=== PATIENT | male | born 1970 | race Caucasian/White ===

== ENCOUNTER 2022-09-19 04:04 | Inpatient (IN) | payer SELFPAY ==
[~2022-09-19] VITALS: Ht 175.3 cm; Wt 111.8 kg
[2022-09-19] MEDS ORDERED: KETOROLAC 30 MG/ML VIAL IVP STA (04:26)
[2022-09-19] MEDS ORDERED: LACTATED RINGERS 1,000 ML IV ONE ×2 (04:30)
[2022-09-19] MEDS ORDERED: PIPERACILLIN SODIUM/TAZOBACTAM 4.5 GM in NS (IVPB) 100 ML IV ONE (04:30)
[2022-09-19 04:41] LABS: BASOPHILS # (AUTO) 0.1 10^3/uL (0.0-0.1); BASOPHILS % (AUTO) 1 % (0-10); EOSINOPHILS # (AUTO) 0.2 10^3/uL (0.0-0.3); EOSINOPHILS % (AUTO) 2 % (0-10); HEMATOCRIT 47 % (40-54); LYMPHOCYTES # (AUTO) 1.4 10^3/uL (1.0-4.0); LYMPHOCYTES % (AUTO) 14 % (12-44); MEAN CORPUSCULAR HEMOGLOBIN 29 pg (25-34); MEAN CORPUSCULAR HGB CONC 34 g/dL (32-36); MEAN CORPUSCULAR VOLUME 85 fL (80-99); MEAN PLATELET VOLUME 9.8 fL (9.0-12.2); MONOCYTES # (AUTO) 0.6 10^3/uL (0.0-1.0); MONOCYTES % (AUTO) 6 % (0-12); NEUTROPHILS # (AUTO) 8.1 10^3/uL (1.8-7.8); NEUTROPHILS % (AUTO) 78 % (42-75); PLATELET COUNT 332 10^3/uL (130-400); WHITE BLOOD COUNT 10.4 10^3/uL (4.3-11.0)
[2022-09-19 04:53] LABS: ALBUMIN 4.3 GM/DL (3.2-4.5); CHLORIDE 106 MMOL/L (98-107); SODIUM 139 MMOL/L (135-145)
[2022-09-19 04:54] LABS: CALCIUM 9.4 MG/DL (8.5-10.1)
[2022-09-19 04:55] LABS: GLUCOSE 104 MG/DL (70-105); TOTAL PROTEIN 7.4 GM/DL (6.4-8.2)
[2022-09-19 04:56] LABS: CARBON DIOXIDE 21 MMOL/L (21-32)
[2022-09-19 04:57] LABS: BILIRUBIN,TOTAL 0.5 MG/DL (0.1-1.0)
[2022-09-19 04:59] LABS: ALKALINE PHOSPHATASE 68 U/L (40-136); CREATININE SERUM 0.95 MG/DL (0.60-1.30); GFR ESTIMATED 97
[2022-09-19 05:00] LABS: BUN/CREATININE RATIO 16
[2022-09-19 05:02] LABS: ALANINE AMINOTRANSFERASE 19 U/L (0-55)
[2022-09-19 05:03] LABS: ERYTHROCYTE SEDIMENTATION RATE 3 MM/HR (0-30)
[2022-09-19] MEDS ORDERED: NS 100 ML (IVPB) BAG IV ONE (06:15)
[2022-09-19] MEDS ORDERED: IOHEXOL 350 MG/ML 100 ML (OMNIPAQUE 350) VIAL IV ONE (06:15)
[2022-09-19] MEDS ORDERED: HOLD METFORMIN - RECEIVED CONTRAST 20 ML VIAL IV SCH (06:15)
[2022-09-19 06:33] LABS: AMPHETAMINE SCREEN, URINE NEGATIVE (NEGATIVE); BARBITURATE SCREEN URINE NEGATIVE (NEGATIVE); BENZODIAZEPINES SCREEN URINE NEGATIVE (NEGATIVE); CANNABINOID SCREEN, URINE NEGATIVE (NEGATIVE); COCAINE SCREEN URINE NEGATIVE (NEGATIVE); METHADONE STAT NEGATIVE (NEGATIVE); OPIATE SCREEN URINE NEGATIVE (NEGATIVE); OXYCODONE STAT NEGATIVE (NEGATIVE); PROPOXYPHENE STAT NEGATIVE (NEGATIVE); TRICYCLIC ANTIDEPRESSANTS SCRE NEGATIVE (NEGATIVE)
--- NOTE | 2022-09-19 06:33 | Diagnostic Imaging Report ---
PROCEDURE: CT maxillofacial with contrast. TECHNIQUE: After intravenous administration of contrast, axial images were obtained through the face and reformatted into coronal and sagittal planes. Auto Exposure Controls were utilized during the CT exam to meet ALARA standards for radiation dose reduction. INDICATION: Dental abscess COMPARISON: None FINDINGS: The pterygoid plates are intact. The zygomatic arches are intact. The mandible appears intact and normal in alignment. The maxilla appears intact and there is no fluid in the maxillary sinuses. The orbits are intact. The nasal bones are intact. Paranasal sinuses are otherwise clear. No acute abnormality is seen in the imaged portions of the intracranial structures. There are numerous erosions and dental caries present. There are periapical lucencies of the right maxillary canine and bicuspids. There are periapical lucencies of the left maxillary bicuspids. There are periapical lucencies of the right mandibular 1st molar as well as the left mandibular 1st and 2nd molars. There is a large lytic lesion in the left maxilla measuring about 2 x 1.6 cm in size which extends to the root of the left maxillary 1st molar and may be a periapical lucency or abscess. There is a similar finding on the contralateral side, but smaller. No drainable soft tissue fluid collection is seen. There is a soft tissue mass in the right pharynx measuring approximately 3.6 x 2.4 cm in size on axial imaging and nearly 4.9 cm craniocaudal, involving the right vallecula and the right epiglottis. This appears to narrow the airway by about 50%. No lymphadenopathy is appreciated. No acute osseous abnormality is seen. IMPRESSION: 1. Numerous dental caries with multiple periapical lucencies concerning for dental abscess. This includes at the maxillary molars bilaterally with erosive phlegmon. No rim-enhancing drainable fluid collection is appreciated. 2. Soft tissue mass in the right pharynx involving the vallecula and epiglottis, narrowing the airway and concerning for neoplasm. Recommend direct visualization. Dictated by: Dictated on workstation # [id number]
--- NOTE | 2022-09-19 06:49 | ED EENT ---
History of Present Illness General Chief Complaint: Dental Problems/Pain Stated Complaint: TOOTH ACHE Nursing Triage Note: Pt presents with c/o R sided dental pain. He reports that he's had dental pain for over a month. Tonight he was in pain, stated he took tylenol and went to bed. He then woke up "not feeling right" He states the entire R side of his face is swollen. Allergies and Home Medications Allergies Coded Allergies: No Known Drug Allergies (Unverified , 09/19/22) Past Tnufnkw-Ltgagl-Vqwkuw Hx Immunizations Up To Date Influenza Vaccine Up-to-Date: No; Not Current Physical Exam Vital Signs Vital Signs - First Documented 09/19/22 05:12 Temp 36.3 Pulse 85 Resp 18 B/P (MAP) 161/129 (140) Height, Weight, BMI Height: '" Weight: lbs. oz. kg; 35.00 BMI Method: Progress/Results/Core Measures Results/Orders Lab Results Laboratory Tests Test 09/19/22 04:25 09/19/22 06:02 Range/Units White Blood Count 10.4 4.3-11.0 10^3/uL Red Blood Count 5.58 H 4.30-5.52 10^6/uL Hemoglobin 16.0 13.3-17.7 g/dL Hematocrit 47 40-54 % Mean Corpuscular Volume 85 80-99 fL Mean Corpuscular Hemoglobin 29 25-34 pg Mean Corpuscular Hemoglobin Concent 34 32-36 g/dL Red Cell Distribution Width 13.0 10.0-14.5 % Platelet Count 332 130-400 10^3/uL Mean Platelet Volume 9.8 9.0-12.2 fL Immature Granulocyte % (Auto) 1 % Neutrophils (%) (Auto) 78 H 42-75 % Lymphocytes (%) (Auto) 14 12-44 % Monocytes (%) (Auto) 6 0-12 % Eosinophils (%) (Auto) 2 0-10 % Basophils (%) (Auto) 1 0-10 % Neutrophils # (Auto) 8.1 H 1.8-7.8 10^3/uL Lymphocytes # (Auto) 1.4 1.0-4.0 10^3/uL Monocytes # (Auto) 0.6 0.0-1.0 10^3/uL Eosinophils # (Auto) 0.2 0.0-0.3 10^3/uL Basophils # (Auto) 0.1 0.0-0.1 10^3/uL Immature Granulocyte # (Auto) 0.1 0.0-0.1 10^3/uL Erythrocyte Sedimentation Rate 3 0-30 MM/HR Sodium Level 139 135-145 MMOL/L Potassium Level 4.0 3.6-5.0 MMOL/L Chloride Level 106 98-107 MMOL/L Carbon Dioxide Level 21 21-32 MMOL/L Anion Gap 12 5-14 MMOL/L Blood Urea Nitrogen 15 7-18 MG/DL Creatinine 0.95 0.60-1.30 MG/DL Estimat Glomerular Filtration Rate 97 BUN/Creatinine Ratio 16 Glucose Level 104 70-105 MG/DL Lactic Acid Level 0.92 0.50-2.00 MMOL/L Calcium Level 9.4 8.5-10.1 MG/DL Corrected Calcium 9.2 8.5-10.1 MG/DL Total Bilirubin 0.5 0.1-1.0 MG/DL Aspartate Amino Transf (AST/SGOT) 16 5-34 U/L Alanine Aminotransferase (ALT/SGPT) 19 0-55 U/L Alkaline Phosphatase 68 40-136 U/L C-Reactive Protein High Sensitivity 0.34 0.00-0.50 MG/DL Total Protein 7.4 6.4-8.2 GM/DL Albumin 4.3 3.2-4.5 GM/DL Serum Alcohol < 10 <10 MG/DL Urine Opiates Screen NEGATIVE NEGATIVE Urine Oxycodone Screen NEGATIVE NEGATIVE Urine Methadone Screen NEGATIVE NEGATIVE Urine Propoxyphene Screen NEGATIVE NEGATIVE Urine Barbiturates Screen NEGATIVE NEGATIVE Ur Tricyclic Antidepressants Screen NEGATIVE NEGATIVE Urine Phencyclidine Screen NEGATIVE NEGATIVE Urine Amphetamines Screen NEGATIVE NEGATIVE Urine Methamphetamines Screen NEGATIVE NEGATIVE Urine Benzodiazepines Screen NEGATIVE NEGATIVE Urine Cocaine Screen NEGATIVE NEGATIVE Urine Cannabinoids Screen NEGATIVE NEGATIVE My Orders Orders - RAY LI DO Ed Iv/Invasive Line Start (09/19/22 04:20) Monitor-Rhythm Ecg Trace Only (09/19/22 04:20) Cbc With Automated Diff (09/19/22 04:20) Comprehensive Metabolic Panel (09/19/22 04:20) Hs C Reactive Protein (09/19/22 04:20) Lactic Acid Analyzer (09/19/22 04:20) Erythrocyte Sedimentation Rate (09/19/22 04:20) Ed Iv/Invasive Line Start (09/19/22 04:20) Lactated Ringers (Lr 1000 Ml Iv Solution (09/19/22 04:30) Alcohol (09/19/22 04:26) Drug Screen Stat (Urine) (09/19/22 04:26) Ed Iv/Invasive Line Start (09/19/22 04:26) Lactated Ringers (Lr 1000 Ml Iv Solution (09/19/22 04:30) Piperacillin Sodium/Tazobactam (Zosyn Vi (09/19/22 04:30) Ketorolac Injection (Toradol Injection) (09/19/22 04:26) Ct Maxillofacial W (09/19/22 05:02) Iohexol Injection (Omnipaque 350 Mg/Ml 1 (09/19/22 06:15) Received Contrast (Hold Metformin- Contr (09/19/22 06:15) Ns (Ivpb) (Sodium Chloride 0.9% Ivpb Bag (09/19/22 06:15) Medications Given in ED Current Medications Medications Dose Ordered Sig/Maynor Route Start Time Stop Time Status Last Admin Dose Admin Iohexol 100 ml ONCE ONCE IV 09/19/22 06:15 09/19/22 06:17 DC 09/19/22 06:03 75 ML Lactated Ringer's 1,000 ml @ 0 mls/hr Q0M ONCE IV 09/19/22 04:30 09/19/22 04:31 DC 09/19/22 04:37 0 MLS/HR Lactated Ringer's 1,000 ml @ 0 mls/hr Q0M ONCE IV 09/19/22 04:30 09/19/22 04:31 DC 09/19/22 04:38 0 MLS/HR Piperacillin Sod/ Tazobactam Sod 4.5 gm/Sodium Chloride 100 ml @ 200 mls/hr ONCE ONCE IV 09/19/22 04:30 09/19/22 04:59 DC 09/19/22 04:38 200 MLS/HR Sodium Chloride 100 ml ONCE ONCE IV 09/19/22 06:15 09/19/22 06:17 DC 09/19/22 06:03 80 ML Vital Signs/I&O 09/19/22 05:12 Temp 36.3 Pulse 85 Resp 18 B/P (MAP) 161/129 (140) Blood Pressure Mean: [address] MAXILLOFACIALS--PER RADIOLOGIST REPORT AT 1848 FINDINGS: The pterygoid plates are intact. The zygomatic arches are intact. The mandible appears intact and normal in alignment. The maxilla appears intact and there is no fluid in the maxillary sinuses. The orbits are intact. The nasal bones are intact. Paranasal sinuses are otherwise clear. No acute abnormality is seen in the imaged portions of the intracranial structures. There are numerous erosions and dental caries present. There are periapical lucencies of the right maxillary canine and bicuspids. There are periapical lucencies of the left maxillary bicuspids. There are periapical lucencies of the right mandibular 1st molar as well as the left mandibular 1st and 2nd molars. There is a large lytic lesion in the left maxilla measuring about 2 x 1.6 cm in size which extends to the root of the left maxillary 1st molar and may be a periapical lucency or abscess. There is a similar finding on the contralateral side, but smaller. No drainable soft tissue fluid collection is seen. There is a soft tissue mass in the right pharynx measuring approximately 3.6 x 2.4 cm in size on axial imaging and nearly 4.9 cm craniocaudal, involving the right vallecula and the right epiglottis. This appears to narrow the airway by about 50%. No lymphadenopathy is appreciated. No acute osseous abnormality is seen. IMPRESSION: 1. Numerous dental caries with multiple periapical lucencies concerning for dental abscess. This includes at the maxillary molars bilaterally with erosive phlegmon. No rim-enhancing drainable fluid collection is appreciated. 2. Soft tissue mass in the right pharynx involving the vallecula and epiglottis, narrowing the airway and concerning for neoplasm. Recommend direct visualization. Reviewed: Reviewed by [place] Departure Departure-Patient Inst. Referrals: NO,LOCAL PHYSICIAN (PCP/Family) Primary Care Physician RAY LI DO September 19, 2022 06:49
[2022-09-19 08:10] VITALS: BP 158/99
[2022-09-19] MEDS: fentaNYL INJ 100 MCG/2 ML AMP IVP PRN ×4 (08:45→17:17)
[2022-09-19] MEDS: PIPERACILLIN SODIUM/TAZOBACTAM 4.5 GM in NS (IVPB) 100 ML IV SCH ×2 (10:51→18:16)
[2022-09-19 11:16] VITALS: BP 143/98
[2022-09-19 11:17] VITALS: BP 143/98
[2022-09-19] MEDS: KETOROLAC 30 MG/ML VIAL IV PRN (14:11)
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
[2022-09-19 15:00] VITALS: BP 158/101
--- NOTE | 2022-09-19 16:14 | Progress Note ---
Standard Progress Note Progress Notes/Assess & Plan Date Seen by a Provider: September 19, 2022 Time Seen by a Provider: 16:00 Progress/Assessment & Plan ENTZach Reason for Consult: Throat Mass HPI: Patient admitted earlier today because of a dental abscess. On the ct of the neck it showed a large pharyngeal mass filling the valleculae and involving hte peiglottis on the right side. Patient reports problems swallowing for the last three weeks. It has not been treated in any fasion. He is having problems opening his mouth because of the right upper dental abscess. He has had dental problems for a long time. He is having no problems swallowing his saliva or breathing. He is on antibiotics for the dental abscess. wbc-10.4 X-ray review-shows large right sided pharyngeal mass which is exophytic and occludes the airway in the region of hte epiglottis. On the ct below the epiglottis looks clear. No marked adenopathy or abscss seen in the soft tissue of the neck. Teeth are in terible condition. Exam: General-no problems breathing voice sounds full but otherwise no stridor and no hoarseness Oral Cavity-mild to moderate trismus secondary to the dental abscess No mass seen at the posterior tongue. ON the right side the tonsil appears swollen in the mid tonsillar region. Tonsil on left is small Neck-tender in right jugulodigastric region and low in the neck in the midline but no marked swelling or absess felt Fiberoptic Lryngoscopy 4% xylocaine used to anesthetize the left side of the nose. ON exam, the nasopharynx was clear. Hypopharynx showed a large softitssue mass which occludes 80-90% of th airway above the level fo the cords. The cords themselves were clear. I was able to get around the mass with the fiberoptic laryngoscope and from the area of the petiole of hte epiglottis to the elvel fo hte cords it was clear. No pooling of secretions seen IMP: 1. 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 Dental Abscess Rec: 1. I reviewed the findings with the patient. He will need biopsy and removal of the cyst/mass for diagnosis and potential treatment. The mass does occlude most of the airway. Will speak with anesthesia regarding their comfort level with the above findings. If not comfortable will need to transfer to a higher level of care to do this. The ptient knows there is a possibility of needing transfer. Once I talk with anesthesia then will make a final decision. Dental abscess needs to get some better before surgery to decrease the amount of trismus present. His airway is stable at this time. Talked with anesthesia regardign the patietn and she will go past to assess the patient and we can make an informed decsioin on whether to proceed with surgery or transfer Final Diagnosis Large Right phayrngeal mass Dental Abscess Focused Exam Lactate Level 09/19/22 04:25: Lactic Acid Level 0.92 SARAH PETERSON MD September 19, 2022 16:14
[2022-09-19] MEDS: amLODIPine 10 MG (NORVASC) TAB PO ONE ×2 (17:03→17:08)
[2022-09-19] MEDS ORDERED: hydrALAZINE (APESOLINE) 20 MG/ML VIAL IV PRN (18:00)
[2022-09-19] MEDS: D5 1/2 NS W/KCL 20 MEQ/L 1,000 ML IV SCH (18:16)
[2022-09-19 19:14] VITALS: BP 144/95
[2022-09-20] VITALS (8 sets, daily range): BP systolic 127–148; BP diastolic 87–100
[2022-09-20] MEDS: KETOROLAC 30 MG/ML VIAL IV PRN
[2022-09-20] MEDS: PIPERACILLIN SODIUM/TAZOBACTAM 4.5 GM in NS (IVPB) 100 ML IV SCH ×3 (01:37→18:23)
[2022-09-20] MEDS: fentaNYL INJ 100 MCG/2 ML AMP IVP PRN ×3 (03:29→11:17)
[2022-09-20 05:55] LABS: BASOPHILS # (AUTO) 0.1 10^3/uL (0.0-0.1); BASOPHILS % (AUTO) 1 % (0-10); EOSINOPHILS # (AUTO) 0.1 10^3/uL (0.0-0.3); EOSINOPHILS % (AUTO) 1 % (0-10); HEMATOCRIT 45 % (40-54); LYMPHOCYTES # (AUTO) 0.9 10^3/uL (1.0-4.0); LYMPHOCYTES % (AUTO) 12 % (12-44); MEAN CORPUSCULAR HEMOGLOBIN 29 pg (25-34); MEAN CORPUSCULAR HGB CONC 34 g/dL (32-36); MEAN CORPUSCULAR VOLUME 85 fL (80-99); MEAN PLATELET VOLUME 10.1 fL (9.0-12.2); MONOCYTES # (AUTO) 0.5 10^3/uL (0.0-1.0); MONOCYTES % (AUTO) 6 % (0-12); NEUTROPHILS % (AUTO) 79 % (42-75); PLATELET COUNT 310 10^3/uL (130-400); WHITE BLOOD COUNT 7.6 10^3/uL (4.3-11.0)
[2022-09-20] MEDS: D5 1/2 NS W/KCL 20 MEQ/L 1,000 ML IV SCH ×2 (06:10→10:57)
[2022-09-20 06:14] LABS: CALCIUM 9.4 MG/DL (8.5-10.1); CREATININE SERUM 0.89 MG/DL (0.60-1.30); POTASSIUM 4.2 MMOL/L (3.6-5.0)
--- NOTE | 2022-09-20 06:36 | Progress Note ---
Standard Progress Note Progress Notes/Assess & Plan Date Seen by a Provider: September 20, 2022 Time Seen by a Provider: 06:00 Progress/Assessment & Plan ENTZach Reason for Consult: Throat Mass HPI: Patient admitted earlier today because of a dental abscess. On the ct of the neck it showed a large pharyngeal mass filling the valleculae and involving hte peiglottis on the right side. Patient reports problems swallowing for the last three weeks. It has not been treated in any fasion. He is having problems opening his mouth because of the right upper dental abscess. He has had dental problems for a long time. He is having no problems swallowing his saliva or breathing. He is on antibiotics for the dental abscess. wbc-10.4 X-ray review-shows large right sided pharyngeal mass which is exophytic and occludes the airway in the region of hte epiglottis. On the ct below the epiglottis looks clear. No marked adenopathy or abscss seen in the soft tissue of the neck. Teeth are in terible condition. Exam: General-no problems breathing voice sounds full but otherwise no stridor and no hoarseness Oral Cavity-mild to moderate trismus secondary to the dental abscess No mass seen at the posterior tongue. ON the right side the tonsil appears swollen in the mid tonsillar region. Tonsil on left is small Neck-tender in right jugulodigastric region and low in the neck in the midline but no marked swelling or absess felt Fiberoptic Lryngoscopy 4% xylocaine used to anesthetize the left side of the nose. ON exam, the nasopharynx was clear. Hypopharynx showed a large softitssue mass which occludes 80-90% of th airway above the level fo the cords. The cords themselves were clear. I was able to get around the mass with the fiberoptic laryngoscope and from the area of the petiole of hte epiglottis to the elvel fo hte cords it was clear. No pooling of secretions seen IMP: 1. 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 Dental Abscess Rec: 1. I reviewed the findings with the patient. He will need biopsy and removal of the cyst/mass for diagnosis and potential treatment. The mass does occlude most of the airway. Will speak with anesthesia regarding their comfort level with the above findings. If not comfortable will need to transfer to a higher level of care to do this. The ptient knows there is a possibility of needing transfer. Once I talk with anesthesia then will make a final decision. Dental abscess needs to get some better before surgery to decrease the amount of trismus present. His airway is stable at this time. Talked with anesthesia regardign the patietn and she will go past to assess the patient and we can make an informed decsioin on whether to proceed with surgery or transfer ENT-Annika 09/20-6am Patient seen. Has been evaluated by anesthesia. Symptoms no better no airway issue Exam-clinically hasnt changed dental abscess swellign some better no marked swelling seen in the neck good neck mobility voice is normal IMP: Large Pharyngeal mass Dental ABscess-better Rec: 1. Patient will need surgery for diagnosis and treatment. Risks benefits of the surgery including possilbe airwayu obstruction and were discussed. The possilbe need for a tracheostomy was discussed as well. The surger y is adriect laryngosocpy with biopsy/debridement and possible tracheostomy. He understands the tube will be put down with him awake. He has been NPO. Will proceed with surgery when crew and anesthesia are here. Focused Exam Lactate Level 09/19/22 04:25: Lactic Acid Level 0.92 SARAH PETERSON MD September 20, 2022 06:36
--- NOTE | 2022-09-20 06:37 | Progress Note-Pre Operative ---
Pre-Operative Progress Note Date of Available H&P: September 20, 2022 Date H&P Reviewed: September 20, 2022 Time H&P Reviewed: 06:00 History & Physical: H&P Reviewed, Patient Examed, No changes noted Changes from last HP none Pre-Operative Diagnosis: Large Right Pharyngeal Mass, Dysphagia SARAH PETERSON MD September 20, 2022 06:37
[2022-09-20] MEDS ORDERED: KETAMINE 50 MG/5 ML SYRINGE ONE ×2 (07:07→08:15)
[2022-09-20] MEDS ORDERED: MIDAZOLAM 2 MG/2 ML (VERSED) VIAL ONE ×3 (07:07→08:20)
[2022-09-20] MEDS ORDERED: LIDOCAINE/EPI 1%-1:100,000 (XYLOCAINE) 20ML ONE (07:12)
[2022-09-20] MEDS ORDERED: LIDOCAINE TOPICAL 4% 50 ML BTL ONE (07:19)
[2022-09-20] MEDS ORDERED: LIDOCAINE TOPICAL 4% 50 ML BTL MM ONE ×2 (07:30)
[2022-09-20] MEDS: LACTATED RINGERS 1,000 ML IV PRN ×2 (07:43→09:10)
[2022-09-20] MEDS ORDERED: HYDROmorphone 2 MG/ML VIAL (DILAUDID) ONE (07:59)
[2022-09-20] MEDS ORDERED: morphine INJ 10 MG/ML 1ML (SYR OR VIAL) ONE (07:59)
[2022-09-20] MEDS ORDERED: MEPERIDINE (DEMEROL) INJ 50 MG/ML ONE (07:59)
[2022-09-20] MEDS ORDERED: ONDANSETRON 4 MG/2 ML (SDV) Z0FRAN ONE (07:59)
[2022-09-20] MEDS ORDERED: fentaNYL INJ 100 MCG/2 ML AMP ONE ×2 (08:00→08:26)
[2022-09-20] MEDS ORDERED: ESMOLOL 100 MG/10 ML (BREVIBLOC) VIAL ONE (08:15)
[2022-09-20] MEDS ORDERED: SUGAMMADEX 500 MG/5 ML VIAL (BRIDION) IV ONE (08:50)
[2022-09-20] MEDS ORDERED: proPOfol 200 MG/20 ML (DIPRIVAN) VIAL IV ONE (08:55)
[2022-09-20] MEDS ORDERED: SEVOFLURANE (ULTANE) 15 ML INHAL SOLN ONE ×2 (08:57→11:18)
[2022-09-20] MEDS ORDERED: ROCURONIUM 50 MG/5 ML (ZEMURON) VIAL IV ONE (08:57)
--- NOTE | 2022-09-20 09:11 | Progress Note-Post Operative ---
Post-Operative Progess Note Surgeon (s)/Passport Application Examiner (s) Surgeon SARAH PETERSON MD Passport Application Examiner n/a Pre-Operative Diagnosis Large Right Pharyngeal Mass, Dysphagia Post-Operative Diagnosis same Post-Op Procedure Note Date of Procedure: September 20, 2022 Name of Procedure Performed: Emergent Awake Tracheostomy, Direct Laryngosopcy with Biopsy, EUA of ORpharynx with Biopsy of Large Right Tonsil Mass Description & Findings Description and Findings: n/a Anesthesia Type trach Estimated Blood Loss minimal Packing none. Specimen(s) collected/removed large right tonsil mass to pathology SARAH PETERSON MD September 20, 2022 09:11
--- NOTE | 2022-09-20 09:14 | Progress Note ---
Standard Progress Note Progress Notes/Assess & Plan Date Seen by a Provider: September 20, 2022 Time Seen by a Provider: 09:00 Progress/Assessment & Plan ENTZach Reason for Consult: Throat Mass HPI: Patient admitted earlier today because of a dental abscess. On the ct of the neck it showed a large pharyngeal mass filling the valleculae and involving hte peiglottis on the right side. Patient reports problems swallowing for the last three weeks. It has not been treated in any fasion. He is having problems opening his mouth because of the right upper dental abscess. He has had dental problems for a long time. He is having no problems swallowing his saliva or breathing. He is on antibiotics for the dental abscess. wbc-10.4 X-ray review-shows large right sided pharyngeal mass which is exophytic and occludes the airway in the region of hte epiglottis. On the ct below the epiglottis looks clear. No marked adenopathy or abscss seen in the soft tissue of the neck. Teeth are in terible condition. Exam: General-no problems breathing voice sounds full but otherwise no stridor and no hoarseness Oral Cavity-mild to moderate trismus secondary to the dental abscess No mass seen at the posterior tongue. ON the right side the tonsil appears swollen in the mid tonsillar region. Tonsil on left is small Neck-tender in right jugulodigastric region and low in the neck in the midline but no marked swelling or absess felt Fiberoptic Lryngoscopy 4% xylocaine used to anesthetize the left side of the nose. ON exam, the nasopharynx was clear. Hypopharynx showed a large softitssue mass which occludes 80-90% of th airway above the level fo the cords. The cords themselves were clear. I was able to get around the mass with the fiberoptic laryngoscope and from the area of the petiole of hte epiglottis to the elvel fo hte cords it was clear. No pooling of secretions seen IMP: 1. 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 Dental Abscess Rec: 1. I reviewed the findings with the patient. He will need biopsy and removal of the cyst/mass for diagnosis and potential treatment. The mass does occlude most of the airway. Will speak with anesthesia regarding their comfort level with the above findings. If not comfortable will need to transfer to a higher level of care to do this. The ptient knows there is a possibility of needing transfer. Once I talk with anesthesia then will make a final decision. Dental abscess needs to get some better before surgery to decrease the amount of trismus present. His airway is stable at this time. Talked with anesthesia regardign the patietn and she will go past to assess the patient and we can make an informed decsioin on whether to proceed with surgery or transfer [place] 09/20-6am Patient seen. Has been evaluated by anesthesia. Symptoms no better no airway issue Exam-clinically hasnt changed dental abscess swellign some better no marked swelling seen in the neck good neck mobility voice is normal IMP: Large Pharyngeal mass Dental ABscess-better Rec: 1. Patient will need surgery for diagnosis and treatment. Risks benefits of the surgery including possilbe airwayu obstruction and were discussed. The possilbe need for a tracheostomy was discussed as well. The surger y is adriect laryngosocpy with biopsy/debridement and possible tracheostomy. He understands the tube will be put down with him awake. He has been NPO. Will proceed with surgery when crew and anesthesia are here. [id number] Had to do an awake trach; unable to endotracheally intubate #[address]-tied and sewn in palce do not touch the trach ties will get chest x-ray in RR NPOas cuff is up on the trach if doing well will deflate the cuff this afternoon or tomrrow morning once cuff deflated then can take some po liquids 40% oxygen trach collar-cool mist other order per dR Tamez or CHASE-whichever is being done I will check in with him this afternoon to see how he is doing. the pathology will take a few days to get back he will have some oozing from the trach site and also where we did the biopsy in the right tonsil region and supraglottis Final Diagnosis obstructibe right tonsil mass upper airway obstruction requiring trach dental abscess Focused Exam Lactate Level 09/19/22 04:25: Lactic Acid Level 0.92 SARAH PETERSON MD September 20, 2022 09:14
[2022-09-20] MEDS ORDERED: LIDOCAINE/EPI 1%-1:100,000 (XYLOCAINE) 20ML INJ ONE (09:16)
[2022-09-20] MEDS ORDERED: LACTATED RINGERS 1,000 ML IV ONE (09:19)
--- NOTE | 2022-09-20 09:27 | Diagnostic Imaging Report ---
INDICATION: Tracheostomy, follow-up Frontal chest obtained at 0907 a.m. There is no prior study for comparison. There is cardiomegaly. There is a new tracheostomy tube in place with tip overlying mid trachea. There is no pneumothorax or pleural fluid or focal infiltrate. IMPRESSION: Cardiomegaly with new tracheostomy tube. No focal infiltrate or pneumothorax or pleural fluid. Dictated by: Dictated on workstation # [id number]
[2022-09-20] MEDS ORDERED: fentaNYL INJ 100 MCG/2 ML AMP IVP ONE (10:00)
[2022-09-20] MEDS ORDERED: morphine INJ 10 MG/ML 1ML (SYR OR VIAL) IVP ONE (10:00)
[2022-09-20] MEDS: ONDANSETRON 4 MG/2 ML (SDV) Z0FRAN IVP PRN ×2 (10:14→20:25)
[2022-09-20] MEDS: amLODIPine 10 MG (NORVASC) TAB PO SCH (10:34)
[2022-09-20] MEDS ORDERED: HYDROmorphone 2 MG/ML VIAL (DILAUDID) IV ONE (12:45)
--- NOTE | 2022-09-20 12:45 | Anesthesia-General Post-Op ---
General Patient Condition Mental Status/LOC: Same as Preop Cardiovascular: Satisfactory Nausea/Vomiting: Absent Respiratory: Satisfactory Pain: Controlled Complications: Absent Post Op Complications Complications None Follow Up Care/Instructions Patient Instructions None needed. Anesthesia/Patient Condition Patient Condition Patient is doing well, no complaints, stable vital signs, no apparent adverse anesthesia problems. No complications reported per nursing. MEHUL HAWKINS CRNA September 20, 2022 12:45
--- NOTE | 2022-09-20 13:57 | Progress Note - Hospitalist ---
NIKITAMABLE 09/20/22 1357: Subjective HPI/CC On Admission Date Seen by Provider: September 20, 2022 Time Seen by Provider: 12:40 Tramaine Berry is a 52y M who presented to the ED this morning with worsening right dental pain and swelling for the past few weeks. Subjective/Events-last exam present at bedside. Patient had tracheostomy and right tonsillar mass removal by Dr. Gonzalez today. He is having pain at time of examination, worse with swallowing and coughing. Review of Systems HEENT: Sore Throat Pulmonary: Cough Focused Exam Lactate Level 09/19/22 04:25: Lactic Acid Level 0.92 Objective Exam Vital Signs Vital Signs Date Time Temp Pulse Resp B/P (MAP) Pulse Ox O2 Delivery O2 Flow Rate FiO2 09/20/22 13:00 92 8 165/116 (132) 96 09/20/22 12:00 Trach Collar 10.00 09/20/22 09:45 36.8 Capillary Refill : Less Than 3 SecondsLess Than 3 Seconds General Appearance: WD/WN, Mild Distress (appears in pain with coughing ) HEENT: PERRL/EOMI, Other (tracheostomy site with small amount of bleeding) Respiratory: No Accessory Muscle Use, No Respiratory Distress, Other (frequent coughing) Cardiovascular: No Edema, No JVD Gastrointestinal: Non Tender, Soft Neurologic/Psychiatric: Alert, Normal Mood/Affect Skin: Normal Color, Warm/Dry Results/Procedures Lab Laboratory Tests 09/20/22 05:17 Patient resulted labs reviewed. Imaging: Reviewed Imaging Films, Reviewed Imaging Report Assessment/Plan Assessment and Plan Assess & Plan/Chief Complaint Dental Abscesses Poor dentition CT concerning for abscesses bilateral upper teeth and lytic maxillary lesion Control pain IV abx Abscess drainage- consider OMFS consult Pharyngeal mass on maxillofacial CT Dysphagia s/p tracheostomy CT noted a soft tissue mass in the right pharynx Dr Gonzalez performed tracheostomy and right tonsillar mass removal 09/20 Pending pathology Chest pain-resolved Troponins negative EKG normal Seems more MSK in nature given reproducibility with palpation ?Syncope Continue further investigation of pharyngeal mass ANEL HOPPER MD 09/20/22 1731: Subjective HPI/CC On Admission Time Seen by Provider: 12:30 Assessment/Plan Assessment and Plan Assess & Plan/Chief Complaint Tracheostomy performed, unable to intubate. Underwent right tonsillar mass excision/biopsy. Transferred to ICU. May need OMFS consult for dental abscesses. Continue Zosyn. Dilaudid added for acute pain. Critical Care: Critically Ill Patient Diagnosis/Problems Diagnosis/Problems (1) Tracheostomy in place Status: Acute (2) Tonsillar mass Status: Acute (3) Dental abscess Status: Acute (4) HTN (hypertension) Status: Acute (5) Obesity Status: Chronic Supervisory-Addendum Brief Verification & Attestation Participated in pt care: history, MDM, physical Personally performed: exam, history, MDM, supervision of care Care discussed with: Medical Student Procedures: n/a Results interpretation: Verified all documentation A medical student performed and documented this service in my presence. I reviewed and verified all information documented by the medical student and made modifications to such information, when appropriate. I personally performed the physical exam and medical decision making. MABLE SHELTON September 20, 2022 13:57 ANEL HOPPER MD September 20, 2022 17:31
[2022-09-20] MEDS: HYDROmorphone 2 MG/ML VIAL (DILAUDID) IV PRN ×3 (16:59→23:43)
--- NOTE | 2022-09-20 17:03 | Progress Note ---
Standard Progress Note Progress Notes/Assess & Plan Date Seen by a Provider: September 20, 2022 Time Seen by a Provider: 17:00 Progress/Assessment & Plan ENTZach Reason for Consult: Throat Mass HPI: Patient admitted earlier today because of a dental abscess. On the ct of the neck it showed a large pharyngeal mass filling the valleculae and involving hte peiglottis on the right side. Patient reports problems swallowing for the last three weeks. It has not been treated in any fasion. He is having problems opening his mouth because of the right upper dental abscess. He has had dental problems for a long time. He is having no problems swallowing his saliva or breathing. He is on antibiotics for the dental abscess. wbc-10.4 X-ray review-shows large right sided pharyngeal mass which is exophytic and occludes the airway in the region of hte epiglottis. On the ct below the epiglottis looks clear. No marked adenopathy or abscss seen in the soft tissue of the neck. Teeth are in terible condition. Exam: General-no problems breathing voice sounds full but otherwise no stridor and no hoarseness Oral Cavity-mild to moderate trismus secondary to the dental abscess No mass seen at the posterior tongue. ON the right side the tonsil appears swollen in the mid tonsillar region. Tonsil on left is small Neck-tender in right jugulodigastric region and low in the neck in the midline but no marked swelling or absess felt Fiberoptic Lryngoscopy 4% xylocaine used to anesthetize the left side of the nose. ON exam, the nasopharynx was clear. Hypopharynx showed a large softitssue mass which occludes 80-90% of th airway above the level fo the cords. The cords themselves were clear. I was able to get around the mass with the fiberoptic laryngoscope and from the area of the petiole of hte epiglottis to the elvel fo hte cords it was clear. No pooling of secretions seen IMP: 1. 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 Dental Abscess Rec: 1. I reviewed the findings with the patient. He will need biopsy and removal of the cyst/mass for diagnosis and potential treatment. The mass does occlude most of the airway. Will speak with anesthesia regarding their comfort level with the above findings. If not comfortable will need to transfer to a higher level of care to do this. The ptient knows there is a possibility of needing transfer. Once I talk with anesthesia then will make a final decision. Dental abscess needs to get some better before surgery to decrease the amount of trismus present. His airway is stable at this time. Talked with anesthesia regardign the patietn and she will go past to assess the patient and we can make an informed decsioin on whether to proceed with surgery or transfer [place] 09/20-6am Patient seen. Has been evaluated by anesthesia. Symptoms no better no airway issue Exam-clinically hasnt changed dental abscess swellign some better no marked swelling seen in the neck good neck mobility voice is normal IMP: Large Pharyngeal mass Dental ABscess-better Rec: 1. Patient will need surgery for diagnosis and treatment. Risks benefits of the surgery including possilbe airwayu obstruction and were discussed. The possilbe need for a tracheostomy was discussed as well. The surger y is adriect laryngosocpy with biopsy/debridement and possible tracheostomy. He understands the tube will be put down with him awake. He has been NPO. Will proceed with surgery when crew and anesthesia are here. [id number] Had to do an awake trach; unable to endotracheally intubate #[address]-tied and sewn in palce do not touch the trach ties will get chest x-ray in RR NPOas cuff is up on the trach if doing well will deflate the cuff this afternoon or tomrrow morning once cuff deflated then can take some po liquids 40% oxygen trach collar-cool mist other order per dR Tamez or [facility]ASE-whichever is being done I will check in with him this afternoon to see how he is doing. the pathology will take a few days to get back he will have some oozing from the trach site and also where we did the biopsy in the right tonsil region and supraglottis [place] 09/20-1700 ptient has done well post srugically-breathing easily-maintaining his sat urations small amount of drainage pain controlled with dilaudid exam-site with a mild amount of old blood-no active bleeding seen cuff taken down on trach was able to swallow a sip of wtaer-not able to talk yet as long as does ok tonight then back down to the floor tomorrow-waiting game on the pathology HOme needs: mist machine and suction machine will need a number 6 cuffless shiley to bedside for firsttrach change later this week will rrange for the next steps in eval and care once the pathology is known clear liquids is fine for khushi with sips of liquids as he can-if it causes too much coughing then would back off some Focused Exam Lactate Level 09/19/22 04:25: Lactic Acid Level 0.92 SARAH PETERSON MD September 20, 2022 17:03
[2022-09-21] MEDS: PIPERACILLIN SODIUM/TAZOBACTAM 4.5 GM in NS (IVPB) 100 ML IV SCH ×3 (02:11→18:06)
[2022-09-21] MEDS: HYDROmorphone 2 MG/ML VIAL (DILAUDID) IV PRN ×8 (02:16→21:15)
[2022-09-21] MEDS: D5 1/2 NS W/KCL 20 MEQ/L 1,000 ML IV SCH ×2 (03:48→16:12)
--- NOTE | 2022-09-21 06:05 | Progress Note ---
Standard Progress Note Progress Notes/Assess & Plan Date Seen by a Provider: September 21, 2022 Time Seen by a Provider: 06:00 Progress/Assessment & Plan ENTZach Reason for Consult: Throat Mass HPI: Patient admitted earlier today because of a dental abscess. On the ct of the neck it showed a large pharyngeal mass filling the valleculae and involving hte peiglottis on the right side. Patient reports problems swallowing for the last three weeks. It has not been treated in any fasion. He is having problems opening his mouth because of the right upper dental abscess. He has had dental problems for a long time. He is having no problems swallowing his saliva or breathing. He is on antibiotics for the dental abscess. wbc-10.4 X-ray review-shows large right sided pharyngeal mass which is exophytic and occludes the airway in the region of hte epiglottis. On the ct below the epiglottis looks clear. No marked adenopathy or abscss seen in the soft tissue of the neck. Teeth are in terible condition. Exam: General-no problems breathing voice sounds full but otherwise no stridor and no hoarseness Oral Cavity-mild to moderate trismus secondary to the dental abscess No mass seen at the posterior tongue. ON the right side the tonsil appears swollen in the mid tonsillar region. Tonsil on left is small Neck-tender in right jugulodigastric region and low in the neck in the midline but no marked swelling or absess felt Fiberoptic Lryngoscopy 4% xylocaine used to anesthetize the left side of the nose. ON exam, the nasopharynx was clear. Hypopharynx showed a large softitssue mass which occludes 80-90% of th airway above the level fo the cords. The cords themselves were clear. I was able to get around the mass with the fiberoptic laryngoscope and from the area of the petiole of hte epiglottis to the elvel fo hte cords it was clear. No pooling of secretions seen IMP: 1. 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 Dental Abscess Rec: 1. I reviewed the findings with the patient. He will need biopsy and removal of the cyst/mass for diagnosis and potential treatment. The mass does occlude most of the airway. Will speak with anesthesia regarding their comfort level with the above findings. If not comfortable will need to transfer to a higher level of care to do this. The ptient knows there is a possibility of needing transfer. Once I talk with anesthesia then will make a final decision. Dental abscess needs to get some better before surgery to decrease the amount of trismus present. His airway is stable at this time. Talked with anesthesia regardign the patietn and she will go past to assess the patient and we can make an informed decsioin on whether to proceed with surgery or transfer [place] 09/20-6am Patient seen. Has been evaluated by anesthesia. Symptoms no better no airway issue Exam-clinically hasnt changed dental abscess swellign some better no marked swelling seen in the neck good neck mobility voice is normal IMP: Large Pharyngeal mass Dental ABscess-better Rec: 1. Patient will need surgery for diagnosis and treatment. Risks benefits of the surgery including possilbe airwayu obstruction and were discussed. The possilbe need for a tracheostomy was discussed as well. The surger y is adriect laryngosocpy with biopsy/debridement and possible tracheostomy. He understands the tube will be put down with him awake. He has been NPO. Will proceed with surgery when crew and anesthesia are here. [id number] Had to do an awake trach; unable to endotracheally intubate #[address]-tied and sewn in palce do not touch the trach ties will get chest x-ray in RR NPOas cuff is up on the trach if doing well will deflate the cuff this afternoon or tomrrow morning once cuff deflated then can take some po liquids 40% oxygen trach collar-cool mist other order per dR Tamez or [facility]ASE-whichever is being done I will check in with him this afternoon to see how he is doing. the pathology will take a few days to get back he will have some oozing from the trach site and also where we did the biopsy in the right tonsil region and supraglottis [place] 09/20-1700 ptient has done well post srugically-breathing easily-maintaining his sat urations small amount of drainage pain controlled with dilaudid exam-site with a mild amount of old blood-no active bleeding seen cuff taken down on trach was able to swallow a sip of wtaer-not able to talk yet as long as does ok tonight then back down to the floor tomorrow-waiting game on the pathology HOme needs: mist machine and suction machine will need a number 6 cuffless shiley to bedside for firsttrach change later this week will rrange for the next steps in eval and care once the pathology is known clear liquids is fine for khushi with sips of liquids as he can-if it causes too much coughing then would back off some ENT-Annika-09/21-6am doing well taking sips of water without problem still not talking at all trach site looks good ok with me to transfer back to floor with current trach site orders will be out of town on so willsee the patient on wednesday waiting game for pathology needs to have all teeth removed at some point for his health and probaly in anticipation for treatment Focused Exam Lactate Level 09/19/22 04:25: Lactic Acid Level 0.92 SARAH PETERSON MD September 21, 2022 06:05
[2022-09-21] MEDS: amLODIPine 10 MG (NORVASC) TAB PO SCH (09:09)
[2022-09-21] MEDS: KETOROLAC 30 MG/ML VIAL IV PRN ×2 (09:48→18:07)
[2022-09-21] MEDS ORDERED: HYDROcodone/APAP 7.5MG-325 MG/15 ML (LORTAB) UDC PO PRN (11:30)
--- NOTE | 2022-09-21 14:08 | ST Dysphagia Evaluation ---
Speech Evaluation-General Medical Diagnosis Dental Abscess, Right Pharyngeal Mass Onset Date: September 19, 2022 Therapy Diagnosis Therapy Diagnosis: Suspected Pharyngeal Dysphagia Precautions Precautions: Aspiration Precautions/Isolations: Aspiration, Standard Precautions Referral Referring Physician: Dr. Smith Reason for Referral: Evaluation/Treatment Medical History Reviewed History: Yes Speech PLF/Current-Dysphagia Prior Level of Function Per patient (and patient's family), the patient has experienced swallowing difficulties for approximately two months. The patient stated he often coughed following thin liquids and food and frequently experienced a globus sensation which he localized to the laryngeal region. Subjective The patient was seated upright in his bed, awake and alert, upon entrance to his room by the clinician. The patient's has two family members present at bedside, both family members remain for the duration of the assessment. The patient reports discomfort and pain which he localizes to the pharyngeal and tracheostomy regions, however, is agreeable to participation in the clinical bedside swallowing evaluation. The patient's family members reported the patient recently experienced "a big choking" event on Jell-O. The patient's family provided inconsistent reports of the patient's tolerance of thin liquids, once stating the patient was not experiencing difficulties followed by a report the patient was intermittently coughing following the swallow. The patient reported he is experiencing difficulty swallowing his own secretions at this time. The patient has a Shiley, cuffed, tracheostomy tube #6 with the cuff deflated at this time. Cognitive Status Patient Orientation: Person, Place, Time, Situation The patient utilizes paper and a pen for communication at this time. Oral Motor Skills Dentition: Natural (Sparse, poor condition.) Current Food Consistancy: Clear Liquids Ability to Follow Directions: Excellent Oral Expression Ability: No Impairment (The patient does not display expressive difficulties (such as aphasia or anomia), however, is dependent on writing for communication at this time.) Tracheostomy Type: Cuffed (Cuff deflated.), Shiley Face Facial Symmetry: Symmetrical Oral-Facial Assessment Oral-Facial Dentition: Normal Labial Seal Description: Normal Smile: Normal Lingual Protrusion: Abnormal (Due to the patient's trismus, limited lingual range of motion could be observed or evaluated by the clinician.) Lingual ROM: Abnormal Lingual Strength: Abnormal Volitional Dry Swallow: Yes (Facial grimacing, odynophagia reported.) Voluntary Cough: Yes Can Clear Throat Volitionally: Yes Productive Cough: Yes Productive Throat Clear: Yes Dysphagia Evaluation Consistencies Presented: Thin Liquid (Ice chip, teaspoon, straw sip.) The patient was able to appropriately remove bolus material from a teaspoon and straw. Anterior bolus loss was not experienced. The patient appropriately man ipulated the ice chip and transferred the liquid posterior in the oral cavity. The patient consumed ice chips, teaspoons of water, and straw drinks of water. The patient displays an effortful swallow, grimacing due to odynophagia, and demonstrating three to four swallows per ice chip and teaspoon. Overt s/s of suspected aspiration were not displayed with ice chips and teaspoons. The patient attempted swallowing pain medication (thin liquid) via teaspoon. The patient displayed overt s/s of suspected aspiration characterized by delayed coughing, throat clearing, and reported elevated pain. The patient additionally displayed s/s of suspected aspiration with thin liquids via straw characterized by delayed, rigorous coughing and red face. Funct. Velo/Pharyngeal Symptom: Cough After Swallow Dietary Recommendations: NPO Liquid Recommendations: NPO Recommendations: - N.P.O. - Frequent and excellent oral care to reduce the transfer of oral bacteria to the lungs should aspiration of secretions occur. - Ice chips and sips of water, sparingly, to aid in comfort and initiate the rehabilitation process. - Speech pathology to evaluate the oropharyngeal swallowing function daily. - Consider completion of a modified barium swallow evaluation to assess for the presence of aspiration with P.O. consistencies and best guide the post-operative oropharyngeal swallowing rehabilitation plan (approved by Dr. Gonzalez). - Consider appropriateness of a tracheostomy speaking valve to restore intra- oral pressure throughout the oropharyngeal swallowing function (approved by Dr. Gonzalez). - If treatment plan includes radiation (pending on pathology report), consider prophylactic dysphagia therapy prior to and during treatment. The results and recommendations were discussed extensively with the patient, the patient's family, and the RN following completion of the clinical bedside swallowing evaluation. Dysphagia Evaluation Summary At this time, the patient displays suspected pharyngeal dysphagia characterized by multiple swallow attempts per teaspoon bolus, effortful swallowing, odyn ophagia, and poor airway protection in the presence of the swallow. Due to the patient's reported and visible discomfort, limited P.O. bolus trials could be attempted by the clinician. The clinician provided education regarding the oropharyngeal swallowing function, including the technique of digitally occluding the tracheostomy site throughout the swallow. At this time, the patient reports discomfort and pain at the tracheostomy site and stated he is not interested in attempting digital occlusion. The tracheostomy site is cuffed but the cuff is deflated. Once the patient's comfort with the tracheostomy site increases, the clinician does recommend attempts at digital occlusion to improve intra-oral pressure throughout the swallowing function. Speech Short Term Goals Short Term Goals Short Term Goals 1. The patient will display safe swallowing strategies with 80% accuracy, independently. Time Frame-STG: Five Days. Speech Assisted Goals Floor Space Allocator Goals 1. The patient will tolerate the least restrictive diet consistency without s/s of suspected aspiration. Time Frame: One Week. Speech-Plan Treatment Plan Speech Therapy Treatment Plan: Continue Plan of Care Treatment Duration: October 02, 2022 Frequency: 4 times per week Estimated Hrs Per Day: .25 hour per day Rehab Potential: Good Pt/Family Agrees to Plan: Yes Safety Risks/Education Teaching Recipient: Patient, Family, Significant Other Teaching Methods: Demonstration, Discussion Response to Teaching: Verbalize Understanding, Reinforcement Needed Education Topics Provided: Results, Recommendations, Oropharyngeal Swallow Anatomy and Physiology, Plan of Care Time Speech Therapy Time In: 12:00 Speech Therapy Time Out: 12:45 DATE: September 21, 2022 Total Billed Time: 76 Billed Treatment Time 1, SHAISTA DEL RIO [facility] September 21, 2022 14:08
--- NOTE | 2022-09-21 14:19 | ST Dysphonia Evaluation ---
LARRY CAZARES September 21, 2022 14:19
--- NOTE | 2022-09-21 14:26 | ST Cognitive Linguistic Eval ---
Speech Evaluation-General Medical Diagnosis Dental Abscess, Right Pharyngeal Mass Onset Date: September 19, 2022 Therapy Diagnosis Therapy Diagnosis: Aphonia (secondary tracheostomy) Precautions Precautions: Aspiration Precautions/Isolations: Aspiration, Standard Precautions Referral Referring Physician: Dr. Smith Reason for Referral: Evaluation/Treatment Medical History Reviewed History: Yes Speech PLF-Current Status Prior Level of Function Please see the patient's medical chart for detailed information regarding the patient prior medical history and recent care throughout his current acute hospitalization. Subjective The patient was seated upright in bed, awake and alert, upon entrance to the patient's room by the clinician. The patient has two family members present in the room, who remain for the evaluation and treatment. The patient makes eye contact and greets the clinician with a wave following the clinician's verbal greeting. The patient is agreeable to participation in the speech, language, and voice evaluation. The patient recently underwent tracheostomy placement due to the presence of a right pharyngeal mass. The patient has a Shiley, #6, cuffed (with the cuff deflated) tracheostomy in place (sutures present near faceplate). The patient has 10 L trach shield, blow by humidification/oxygen in place at this time. Language Eval: Auditory Comprehends Simple Yes/No Ques: Functional Follows 1-Step Commands: Functional Follows General Conversations: Functional Language Eval: Verbal Language Completes Spontaneous Greeting: Functional Requests Basic Needs: Functional Expresses Complex Ideas: Functional At this time, the patient is using paper and pen to communicate fluently to the clinician and others. Language Evaluation: Reading Comprehends Single Nouns: Functional Follows Simple Written Direct: Functional Comprehends Multiple Sentences: Functional Language Evaluation: Writing Writes Short Phrases: Functional Writes Detailed Sent/Paragraph: Functional Objective Cognitive Domain Attention: WNL Objective Oral Motor/Speech Production At this time, the patient wishes to defer attempts at speaking valve placement due to overall pain, including the tracheostomy site. The clinician introduced the [place] Speaking Valve (PMV) and provided diagrams on voice production, anatomy, and physiology. The RN contacted the physician and received appropriate orders for PMV trials. The clinician will continue to provide education to the patient, initiating PMV placement once the patient provides approval. Impression The patient displays aphonia at this time due to the placement of a tracheostomy. PMV orders have been received by the clinician from the patient's physician. The clinician has introduced the speaking valve and provided extensive education regarding vocal anatomy, physiology and PMV use. At this time, the patient is not comfortable initiating PMV trials due to pain. ST will initiate PMV trials once the patient provides permission to attempt and advance voicing techniques. Speech Short Term Goals Short Term Goals Short Term Goals 1. The patient will display appropriate and safe use and care of the [place] Valve. Time Frame-STG: Five Days. Speech Retirement Goals Combine Mechanic Goals 1. The patient will display improved and/or return to phonation with ability to communicate verbally to others through the use of a [place] Valve. Time Frame: One Week. Speech-Plan Treatment Plan Speech Therapy Treatment Plan: Continue Plan of Care Treatment Duration: October 02, 2022 Frequency: 4 times per week Estimated Hrs Per Day: .25 hour per day Rehab Potential: Good Pt/Family Agrees to Plan: Yes Safety Risks/Education Teaching Recipient: Patient, Family, Significant Other Teaching Methods: Demonstration, Discussion Response to Teaching: Verbalize Understanding, Reinforcement Needed Education Topics Provided: Results, Recommendations, [place] Valve Education, Tracheostomy Information, Voice Anatomy and Physiology Time Speech Therapy Time In: 12:45 Speech Therapy Time Out: 13:15 DATE: September 21, 2022 Total Billed Time: 30 Billed Treatment Time 1, OLY TELLEZ [facility] September 21, 2022 14:26
--- NOTE | 2022-09-21 14:58 | Progress Note - Hospitalist ---
Subjective HPI/CC On Admission Date Seen by Provider: September 21, 2022 Tramaine Berry is a 52y M who presented to the ED this morning with worsening right dental pain and swelling for the past few weeks. Subjective/Events-last exam Pt reports pain and cough still. Comunicates by writing. Asking if he can has hernia surgery while here as well but denying any pain with it. Focused Exam Lactate Level 09/19/22 04:25: Lactic Acid Level 0.92 Objective Exam Vital Signs Vital Signs Date Time Temp Pulse Resp B/P (MAP) Pulse Ox O2 Delivery O2 Flow Rate FiO2 09/21/22 09:00 68 13 126/89 (101) 99 Trach Collar 10.00 09/21/22 08:00 36.4 09/21/22 06:46 35 Capillary Refill : Less Than 3 SecondsLess Than 3 Seconds General Appearance: No Apparent Distress, Obese Neck: Other (trach) Respiratory: Lungs Clear, No Respiratory Distress Cardiovascular: Regular Rate, Rhythm Neurologic/Psychiatric: Alert, Oriented x3 Results/Procedures Lab Patient resulted labs reviewed. Imaging: Reviewed Imaging Films, Reviewed Imaging Report Assessment/Plan Assessment and Plan Assess & Plan/Chief Complaint Pharyngeal mass Dysphagia s/p tracheostomy Dental Abscesses Poor dentition s/p resection and trach by Dr Gonzalez on 09/20 Continue Zosyn Continue pain regimen Dr Gonzalez consulted, appreciate recs Path pending Umbilical hernia No pain and easily reduced Outpatient follow up HTN Continue amlodipine Critical Care Critically Ill Patient ELDA HUANG MD September 21, 2022 14:58
[2022-09-21 16:27] VITALS: BP 115/72
[2022-09-21 19:36] VITALS: BP 104/65
[2022-09-21] MEDS ORDERED: DOCUSATE SODIUM 100 MG (COLACE) CAP PO SCH (21:00)
[2022-09-22 00:03] VITALS: BP 110/64
[2022-09-22] MEDS: HYDROmorphone 2 MG/ML VIAL (DILAUDID) IV PRN ×6 (00:11→17:39)
[2022-09-22] MEDS: PIPERACILLIN SODIUM/TAZOBACTAM 4.5 GM in NS (IVPB) 100 ML IV SCH ×3 (02:20→17:33)
[2022-09-22 03:57] VITALS: BP 111/73
[2022-09-22] MEDS: KETOROLAC 30 MG/ML VIAL IV PRN ×2 (05:40→20:13)
[2022-09-22] MEDS: D5 1/2 NS W/KCL 20 MEQ/L 1,000 ML IV SCH ×2 (05:40→17:39)
[2022-09-22 06:16] LABS: HEMATOCRIT 43 % (40-54); HEMOGLOBIN 13.9 g/dL (13.3-17.7); MEAN CORPUSCULAR HEMOGLOBIN 29 pg (25-34); MEAN CORPUSCULAR HGB CONC 32 g/dL (32-36); MEAN CORPUSCULAR VOLUME 88 fL (80-99); MEAN PLATELET VOLUME 10.3 fL (9.0-12.2); PLATELET COUNT 281 10^3/uL (130-400); WHITE BLOOD COUNT 7.7 10^3/uL (4.3-11.0)
[2022-09-22 06:33] LABS: CALCIUM 8.8 MG/DL (8.5-10.1)
[2022-09-22 06:37] LABS: CREATININE SERUM 0.99 MG/DL (0.60-1.30)
[2022-09-22 07:27] VITALS: BP 112/71
[2022-09-22] MEDS: amLODIPine 10 MG (NORVASC) TAB PO SCH (09:18)
[2022-09-22 11:19] VITALS: BP 124/80
[2022-09-22] MEDS: fentaNYL PATCH 50 MCG (DURAGESIC) TD SCH (11:24)
--- NOTE | 2022-09-22 12:58 | Speech Therapy Daily Note ---
Speech Daily Progress Note Subjective Date Seen by Provider: September 22, 2022 Time Seen by Provider: 12:00 The patient was seated upright in his bed, awake and alert, upon entrance to his room by the clinician. The patient greeted the clinician appropriately and was agreeable to participation in the skilled treatment session. The patient reported his pain is a 7/10 which he stated was a reduction in pain from the prior date. The patient has a Shiley #6, cuffed (the cuff is deflated) in place with 8 liter trach collar in place. Objective The patient reports the tracheostomy is tender on this date and is nervous about attempting speaking valve placement. Due to this, the clinician discussed and provided education regarding the speaking valve, provided visualization of the speaking valve, and educational handouts on use and function. The clinician did not leave the speaking valve with the patient and has the patient's speaking valve in speech pathology's office. The patient was agreeable to finger occlusion with attempts at phonation. The patient followed instructions appropriately and attempted phonation upon exhalation. At this time, limited, muffled phonation was produced. The clinician suspects post-surgical edema may be present, in addition to trismus (secondary to dental abscess) which could be causing the muffled phonation at this time. The clinician experienced increased pressure when digital occlusion was lifted which is a sign the patient may not be appropriate for placement of the [place] Valve. [place] Valve attempts will be postponed pending improved patient comfort, decreased patient anxiety, and improved candidacy. The patient's SpO2% is 98% prior to P.O. trials and remained throughout the skilled treatment. The patient was provided ice chips and straw drinks of thin liquid. The patient reported odynophagia and facial grimacing remained present. Multiple swallows were attempted for each bolus, however, overt s/s of suspected aspiration were not present. The patient reports overall comfort with the swallowing mechanism on this date. Recommendations: - Clear liquid diet consistency, as tolerated (NO JELL-O). - Fully upright and alert upon P.O. intake. - Small, single sips only. - Monitor for s/s of suspected aspiration with P.O. intake. If demonstrated, please place the patient N.P.O. and contact speech pathology. - The patient is scheduled for a modified barium swallow on 5/17/23 at 1430 to assess for the presence of aspiration, as well as, provide the best prophylactic dysphagia treatment plan. - ST to continue daily follow ups and monitoring. The results and recommendations were provided to the patient and the patient's RN. The patient denied additional questions for ST at this time. Assessment Assessment Current Status: Good Progress Treatment Plan Continue Plan of Care Speech Short Term Goals Short Term Goals Short Term Goals 1. The patient will display appropriate and safe use and care of the [place] Valve. 2. The patient will display safe swallowing strategies with 80% accuracy, independently. Time Frame-STG: Five Days. Speech Red Leader Goals [facility] Goals 1. The patient will display improved and/or return to phonation with ability to communicate verbally to others through the use of a [place] Valve. 2. The patient will demonstrate tolerance of the least restrictive environment without s/s of suspected aspiration. Time Frame: One Week. Speech-Plan Treatment Plan Speech Therapy Treatment Plan: Continue Plan of Care Treatment Duration: October 02, 2022 Frequency: 4 times per week Estimated Hrs Per Day: .25 hour per day Rehab Potential: Good Pt/Family Agrees to Plan: Yes Safety Risks/Education Teaching Recipient: Patient Teaching Methods: Discussion Response to Teaching: Verbalize Understanding Education Topics Provided: Education re: PMV, Tracheostomy Information, Oropharyngeal Swallow Rehabilitation, Plan of Care, Education re: Modified Barium Swallow Time Speech Therapy Time In: 12:00 Speech Therapy Time Out: 12:50 DATE: September 22, 2022 Total Billed Time: 50 Billed Treatment Time 1OLY DYST LOY, [facility] ST September 22, 2022 12:58
--- NOTE | 2022-09-22 12:59 | Progress Note - Hospitalist ---
Subjective HPI/CC On Admission Date Seen by Provider: September 22, 2022 Tramaine Berry is a 52y M who presented to the ED this morning with worsening right dental pain and swelling for the past few weeks. Subjective/Events-last exam Pt reports severe pain still. Dilaudid is working but not lasting long enough. Still not able to take in oral meds. Objective Exam Vital Signs Vital Signs Date Time Temp Pulse Resp B/P (MAP) Pulse Ox O2 Delivery O2 Flow Rate FiO2 09/22/22 11:19 36.6 62 18 124/80 (95) 98 Trach Collar 30.00 8.00 09/22/22 09:44 30 Capillary Refill : Less Than 3 SecondsLess Than 3 Seconds General Appearance: No Apparent Distress Neck: Other (trach ) Respiratory: Lungs Clear Cardiovascular: Regular Rate, Rhythm, No Murmur Neurologic/Psychiatric: Alert, Oriented x3 Results/Procedures Lab Laboratory Tests 09/22/22 05:25 Patient resulted labs reviewed. Imaging: Reviewed Imaging Films, Reviewed Imaging Report Assessment/Plan Assessment and Plan Assess & Plan/Chief Complaint Pharyngeal mass Dysphagia s/p tracheostomy Dental Abscesses Poor dentition s/p resection and trach by Dr Gonzalez on 09/20 Continue Zosyn Continue pain regimen- add fentanyl patch to try to wean off IV and control pain in preparation for DC Dr Gonzalez consulted, appreciate recs Path pending still Umbilical hernia No pain and easily reduced Outpatient follow up HTN Continue amlodipine when able to take PO Critical Care Critically Ill Patient ELDA HUANG MD September 22, 2022 12:59
[2022-09-22 15:49] VITALS: BP 141/89
[2022-09-22 19:35] VITALS: BP 150/92
[2022-09-23] VITALS (7 sets, daily range): BP systolic 134–158; BP diastolic 86–99
[2022-09-23] MEDS: HYDROmorphone 2 MG/ML VIAL (DILAUDID) IV PRN ×3 (00:23→10:27)
[2022-09-23] MEDS: PIPERACILLIN SODIUM/TAZOBACTAM 4.5 GM in NS (IVPB) 100 ML IV SCH ×3 (03:07→17:42)
[2022-09-23] MEDS: KETOROLAC 30 MG/ML VIAL IV PRN ×3 (03:07→23:17)
[2022-09-23 05:49] LABS: CALCIUM 8.7 MG/DL (8.5-10.1)
[2022-09-23 05:53] LABS: CREATININE SERUM 0.81 MG/DL (0.60-1.30)
--- NOTE | 2022-09-23 06:17 | Progress Note ---
Standard Progress Note Progress Notes/Assess & Plan Date Seen by a Provider: September 23, 2022 Time Seen by a Provider: 06:00 Progress/Assessment & Plan ENTZach Reason for Consult: Throat Mass HPI: Patient admitted earlier today because of a dental abscess. On the ct of the neck it showed a large pharyngeal mass filling the valleculae and involving hte peiglottis on the right side. Patient reports problems swallowing for the last three weeks. It has not been treated in any fasion. He is having problems opening his mouth because of the right upper dental abscess. He has had dental problems for a long time. He is having no problems swallowing his saliva or breathing. He is on antibiotics for the dental abscess. wbc-10.4 X-ray review-shows large right sided pharyngeal mass which is exophytic and occludes the airway in the region of hte epiglottis. On the ct below the epiglottis looks clear. No marked adenopathy or abscss seen in the soft tissue of the neck. Teeth are in terible condition. Exam: General-no problems breathing voice sounds full but otherwise no stridor and no hoarseness Oral Cavity-mild to moderate trismus secondary to the dental abscess No mass seen at the posterior tongue. ON the right side the tonsil appears swollen in the mid tonsillar region. Tonsil on left is small Neck-tender in right jugulodigastric region and low in the neck in the midline but no marked swelling or absess felt Fiberoptic Lryngoscopy 4% xylocaine used to anesthetize the left side of the nose. ON exam, the nasopharynx was clear. Hypopharynx showed a large softitssue mass which occludes 80-90% of th airway above the level fo the cords. The cords themselves were clear. I was able to get around the mass with the fiberoptic laryngoscope and from the area of the petiole of hte epiglottis to the elvel fo hte cords it was clear. No pooling of secretions seen IMP: 1. 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 Dental Abscess Rec: 1. I reviewed the findings with the patient. He will need biopsy and removal of the cyst/mass for diagnosis and potential treatment. The mass does occlude most of the airway. Will speak with anesthesia regarding their comfort level with the above findings. If not comfortable will need to transfer to a higher level of care to do this. The ptient knows there is a possibility of needing transfer. Once I talk with anesthesia then will make a final decision. Dental abscess needs to get some better before surgery to decrease the amount of trismus present. His airway is stable at this time. Talked with anesthesia regardign the patietn and she will go past to assess the patient and we can make an informed decsioin on whether to proceed with surgery or transfer [place] 09/20-6am Patient seen. Has been evaluated by anesthesia. Symptoms no better no airway issue Exam-clinically hasnt changed dental abscess swellign some better no marked swelling seen in the neck good neck mobility voice is normal IMP: Large Pharyngeal mass Dental ABscess-better Rec: 1. Patient will need surgery for diagnosis and treatment. Risks benefits of the surgery including possilbe airwayu obstruction and were discussed. The possilbe need for a tracheostomy was discussed as well. The surger y is adriect laryngosocpy with biopsy/debridement and possible tracheostomy. He understands the tube will be put down with him awake. He has been NPO. Will proceed with surgery when crew and anesthesia are here. [id number] Had to do an awake trach; unable to endotracheally intubate #[address]-tied and sewn in palce do not touch the trach ties will get chest x-ray in RR NPOas cuff is up on the trach if doing well will deflate the cuff this afternoon or tomrrow morning once cuff deflated then can take some po liquids 40% oxygen trach collar-cool mist other order per dR Tamez or CHASE-whichever is being done I will check in with him this afternoon to see how he is doing. the pathology will take a few days to get back he will have some oozing from the trach site and also where we did the biopsy in the right tonsil region and supraglottis [place] 09/20-1700 ptient has done well post srugically-breathing easily-maintaining his sat urations small amount of drainage pain controlled with dilaudid exam-site with a mild amount of old blood-no active bleeding seen cuff taken down on trach was able to swallow a sip of wtaer-not able to talk yet as long as does ok tonight then back down to the floor tomorrow-waiting game on the pathology HOme needs: mist machine and suction machine will need a number 6 cuffless shiley to bedside for firsttrach change later this week will rrange for the next steps in eval and care once the pathology is known clear liquids is fine for khushi with sips of liquids as he can-if it causes too much coughing then would back off some ENT-Annika-09/21-6am doing well taking sips of water without problem still not talking at all trach site looks good ok with me to transfer back to floor with current trach site orders will be out of town on so willsee the patient on wednesday waiting game for pathology needs to have all teeth removed at some point for his health and probaly in anticipation for treatment [place] 09/23 6am overall doing well taking some liquids breathing easily still complains of pain-has a fentanyl patch now exam trach site looks good Rec: 1. will change trach before discharge-waiting on path r eport and then can decide what trach to put in 2. optimally plan on chanign trach on am if we get path bck and t hen justice 3. will have agame plan on treatment once we get path back 4. may be up and ambulate 5. needs for justice-at a minimum will need a suciton machine and mist machine 6. will follow up on thrus am or sooner if path gets back SARAH PETERSON MD September 23, 2022 06:17
[2022-09-23] MEDS: D5 1/2 NS W/KCL 20 MEQ/L 1,000 ML IV SCH (06:43)
[2022-09-23 06:46] LABS: HEMATOCRIT 41 % (40-54); HEMOGLOBIN 13.7 g/dL (13.3-17.7); MEAN CORPUSCULAR HEMOGLOBIN 29 pg (25-34); MEAN CORPUSCULAR HGB CONC 34 g/dL (32-36); MEAN CORPUSCULAR VOLUME 86 fL (80-99); MEAN PLATELET VOLUME 9.8 fL (9.0-12.2); PLATELET COUNT 296 10^3/uL (130-400); WHITE BLOOD COUNT 8.8 10^3/uL (4.3-11.0)
[2022-09-23] MEDS: amLODIPine 10 MG (NORVASC) TAB PO SCH (09:27)
--- NOTE | 2022-09-23 11:24 | Progress Note - Hospitalist ---
Subjective HPI/CC On Admission Date Seen by Provider: September 23, 2022 Tramaine Berry is a 52y M who presented to the ED this morning with worsening right dental pain and swelling for the past few weeks. Subjective/Events-last exam Pt doing betetr today. No complaints. Pain persists but a little better with patch. Objective Exam Vital Signs Vital Signs Date Time Temp Pulse Resp B/P (MAP) Pulse Ox O2 Delivery O2 Flow Rate FiO2 09/23/22 08:00 Trach Collar 8.00 09/23/22 07:47 97 30 09/23/22 07:34 36.9 77 20 134/88 (103) Capillary Refill : Less Than 3 SecondsLess Than 3 Seconds General Appearance: No Apparent Distress, Obese Neck: Other (trach) Respiratory: Lungs Clear, No Respiratory Distress Cardiovascular: Regular Rate, Rhythm, No Murmur Neurologic/Psychiatric: Alert, Oriented x3 Results/Procedures Lab Laboratory Tests 09/23/22 05:05 09/23/22 06:35 Patient resulted labs reviewed. Imaging: Reviewed Imaging Films, Reviewed Imaging Report Assessment/Plan Assessment and Plan Assess & Plan/Chief Complaint Pharyngeal mass Dysphagia s/p tracheostomy Dental Abscesses Poor dentition s/p resection and trach by Dr Gonzalez on 09/20 Continue Zosyn Continue pain regimen- encourage liquid hydrocodone as well to try and get off IV meds in preparation for discharge Dr Gonzalez consulted, appreciate recs Path pending still Umbilical hernia No pain and easily reduced Outpatient follow up HTN Continue amlodipine Critical Care Critically Ill Patient ELDA HUANG MD September 23, 2022 11:24
--- NOTE | 2022-09-23 11:42 | Occ Therapy Progress Note ---
Therapy Progress Note OT/PT order recieved, OT initiated evaluation and per patient request both OT/PT to retrun when present. OT left contact information w/patient and PT agrees to schedule w/ OT JAY WOODARD OT September 23, 2022 11:42
--- NOTE | 2022-09-23 11:56 | Speech Therapy Daily Note ---
Speech Daily Progress Note Subjective Date Seen by Provider: September 23, 2022 Time Seen by Provider: 11:35 The patient was seated upright in his bed, awake and alert, upon entrance to his room by the clinician. The patient greeted the clinician with eye contact and a wave, agreeing to participation in the skilled speech pathology treatment session. Objective The patient is scheduled for a modified barium swallow at 1430 on this date. The clinician discussed the process of the modified barium swallow with the patient and the information that can be gained from participation. The patient denied additional questions regarding the assessment at this time. The patient remains on a clear liquid diet consistency (no Jell-O). The patient denied choking episodes, coughing or throat clearing with the clear liquids throughout the prior evening. The clinician reviews s/s of suspected aspiration with the patient at the close of the swallowing discussion. The clinician remains concerned of the patient's oropharyngeal swallow function due to the location of the removed pharyngeal mass, the presence of the tracheostomy, and the patient's trismus (due to his dental abscess). A modified barium swallow remains the most appropriate plan of care to assess for aspiration of P.O. intake and provide the best dysphagia treatment post-operatively. The patient remains with the initial tracheostomy tube in place (Shwetha, #6 cuffed- with the cuff deflated). The clinician re-introduces the speaking valve on this date. At this time, the patient stated he remains anxious regarding attempts at placement. The clinician provided additional education regarding the speaking valve, as well as, possible benefits of placement. The patient agrees to digital occlusion of his tracheostomy site by the clinician to attempt ph onation. The patient is able to provide a sustained vowel with digital occlusion of the tracheostomy site upon exhalation by the clinician. The phonation remains muffled, however, improved in comparison to the prior session. Following the second attempt, the patient politely defers additional attempts by the clinician. Continue with current plan of care. Outpatient speech pathology intervention to implement prophylactic dysphagia therapy and speaking valve placement remains appropriate. Assessment Assessment Current Status: Fair Progress Treatment Plan Continue Plan of Care Speech Short Term Goals Short Term Goals Short Term Goals 1. The patient will display appropriate and safe use and care of the Passy [place] Valve. 2. The patient will display safe swallowing strategies with 80% accuracy, independently. Time Frame-STG: Five Days. Speech Academic Coach Goals Group Home Goals 1. The patient will display improved and/or return to phonation with ability to communicate verbally to others through the use of a Passy [place] Valve. 2. The patient will demonstrate tolerance of the least restrictive environment without s/s of suspected aspiration. Time Frame: One Week. Speech-Plan Treatment Plan Speech Therapy Treatment Plan: Continue Plan of Care Treatment Duration: October 02, 2022 Frequency: 4 times per week Estimated Hrs Per Day: .25 hour per day Rehab Potential: Good Safety Risks/Education Teaching Recipient: Patient Teaching Methods: Demonstration, Discussion Response to Teaching: Verbalize Understanding, Reinforcement Needed Education Topics Provided: Speaking Valve Education, Swallowing Education Time Speech Therapy Time In: 11:35 Speech Therapy Time Out: 11:45 DATE: September 23, 2022 Total Billed Time: 10 Billed Treatment Time SHAISTA Gustafson SLTS LO[facility], [facility] September 23, 2022 11:56
--- NOTE | 2022-09-23 14:33 | Physical Therapy Evaluation ---
PT Evaluation-General Medical Diagnosis Admission Date September 19, 2022 at 07:57 Medical Diagnosis: Dental Abscess, Right Pharyngeal Mass Onset Date: September 19, 2022 Therapy Diagnosis Therapy Diagnosis: gait deficit, strength deficit Precautions Precautions/Isolations: Fall Prevention, Standard Precautions Weight Bear Status Right Lower Extremity: Right Weight Bearing/Tolerated Left Lower Extremity: Left Weight Bearing/Tolerated Referral Physician: Dr. Marley Reason for Referral: Evaluation/Treatment Medical History Reviewed History: Yes Social History Home: Single Level Current Living Status: Spouse Entry Into Home: Stairs Without Railing PT Steps Into Home: 4 Prior Prior Level of Function SCALE: Activities may be completed with or without assistive devices. 9-Zazbmakceo-jjpmfea completes the activity by him/herself with no assistance from a helper. 5-Set-up or Clean-up Assistance-helper sets up or cleans up; patient completes activity. White assists only prior to or following the activity. 4-Supervision or Touching Assistance-helper provides verbal cues and/or touching/steadying and/or contact guard assistance as patient completes activity. Assistance may be provided throughout the activity or intermittently. 3-Partial/Moderate Assistance-helper does LESS THAN HALF the effort. White lifts, holds or supports trunk or limbs, but provides less than half the effort. 2-Substantial/Maximal Assistance-helper does MORE THAN HALF the effort. White lifts or holds trunk or limbs and provides more than half the effort. 8-Gjpozinyj-fjzkni does ALL the effort. Patient does none of the effort to complete the activity. Or, the assistance of 2 or more helpers is required for the patient to complete the activity. If activity was not attempted, code reason: 7-Patient Refused. 9-Not Applicable-not attempted and the patient did not perform the activity before the current illness, exacerbation or injury. 10-Not Attempted due to Environmental Limitations-(lack of equipment, weather restraints, etc.). 88-Not Attempted due to Medical Conditions or Safety Concerns. Bed Mobility: 6 Transfers (B,C,W/C): 6 Gait: 6 Stairs: 6 Indoor Mobility (Ambulation): Independent Stairs: Independent Prior Devices Use: None PT Evaluation-Current Subjective Patient sitting up in bed upon PT arrival, agreeable to treatment. Patient unable to speak at this moment, but is able to give non-verbals and writes information on a clipboard. Rates pain at 6/10 in jaw/mouth/throat. Patient on 6 L O2 via trach mask. Objective Patient Orientation: Person ROM/Strength ROM Lower Extremities WFLs all planes BLEs Strength Lower Extremities 4/5 BLEs all planes. Sensory Vision: Functional Hearing: Functional Sensation Right Lower Extremit: Intact Sensation Left Lower Extremity: Intact Transfers Roll Left to Right (QC): 6 Sit to Lying (QC): 6 Lying to Sitting/Side of Bed(Q: 6 Sit to Stand (QC): 4 Chair/Yug-ch-Trrur Xfer(QC): 4 Gait Does the Patient Walk?: Yes Mode of Locomotion: Walk Anticipated Mode of Locomotion: Walk Walk 10 feet (QC): 4 Walk 50 ft with 2 Turns(QC): 4 Walk 150 ft (QC): 4 Distance: 200 Gait Assistive Device: FWW Comments/Gait Description Patient requires assistance x 2 for IV and O2 Balance Sitting Static: Normal Sitting Dynamic: Normal Standing Static: Fair Standing Dynamic: Fair Assessment/Needs Patient demonstrates good potential to achieve established goals. Patient performs all observed bed mobility with independence. Patient performs all transfers with SBA. He is on 6 L O2 via trach mask. Patient ambulates 200 feet with FWW, with CGA and verbal cues for safety, progression and conservation of energy. Patient in transport w/c post treatment with staff taking him to swallow study. Rehab Potential: Good PT Towboat Captain Goals Towboat Captain Goals PT Group Home Goals Time Frame: October 07, 2022 Roll Left & Right (QC): 6 Sit to Lying (QC): 6 Lying-Sitting on Side/Bed(QC): 6 Sit to Stand (QC): 6 Chair/Asg-ii-Zedbq Xfer(QC): 6 Toilet Transfer (QC): 6 Car Transfer (QC): 6 Does the Patient Walk: Yes Walk 10 feet (QC): 6 Walk 50ft with 2 Turns (QC): 6 Walk 150 ft (QC): 6 1 Step (curb) (QC): 6 4 Steps (QC): 6 12 Steps (QC): 6 PT Plan Problem List Problem List: Activity Tolerance, Functional Strength, Safety, Balance, Gait, Transfer, Bed Mobility, ROM Treatment/Plan Treatment Plan: Continue Plan of Care Treatment Plan: Bed Mobility, Education, Functional Activity Kaity, Functional Strength, Group Therapy, Gait, Safety, Therapeutic Exercise, Transfers Treatment Duration: October 07, 2022 Frequency: 6 times per week Estimated Hrs Per Day: .25 hour per day Patient and/or Family Agrees t: Yes Safety Risks/Education Patient Education: Gait Training, Transfer Techniques Teaching Recipient: Patient Teaching Methods: Demonstration, Discussion Response to Teaching: Verbalize Understanding, Return Demonstration Time Time In: 1400 Time Out: 1415 DATE: September 23, 2022 Total Billed Treatment Time: 15 Total Billed Treatment Visit, DONNY FERNANDEZ PT September 23, 2022 14:33
--- NOTE | 2022-09-23 14:53 | Occupational Therapy Eval ---
OT Evaluation-General/PLF Medical Diagnosis Admission Date September 19, 2022 at 07:57 Medical Diagnosis: Dental Abscess, Right Pharyngeal Mass Onset Date: September 19, 2022 Therapy Diagnosis Therapy Diagnosis: weakness/dizziness Precautions Precautions/Isolations: Fall Prevention, Standard Precautions Weight Bear Status Weight Bearing Restriction: Full Weight Bearing Referral Physician: Dr. Marley Referral Reason: Self Care, Evaluation/Treatment Medical History Pertinent Medical History: HTN Additional Medical History hernia Current History 52y M who presented to the ED with worsening right dental pain and swelling for the past few weeks. Social History Home: Single Level Current Living Status: Spouse Entry Into Home: Stairs Without Railing Steps Into Home: 4 ADL-Prior Level of Function SCALE: Activities may be completed with or without assistive devices. 3-Tgpinxsvvw-wmaneyv completes the activity by him/herself with no assistance from a helper. 5-Set-up or Clean-up Assistance-helper sets up or cleans up; patient completes activity. [place] assists only prior to or following the activity. 4-Supervision or Touching Assistance-helper provides verbal cues and/or touching/steadying and/or contact guard assistance as patient completes activity. Assistance may be provided throughout the activity or intermittently. 3-Partial/Moderate Assistance-helper does LESS THAN HALF the effort. [place] lifts, holds or supports trunk or limbs, but provides less than half the effort. 2-Substantial/Maximal Assistance-helper does MORE THAN HALF the effort. [place] lifts or holds trunk or limbs and provides more than half the effort. 4-Djghqfwbj-pimoin does ALL the effort. Patient does none of the effort to complete the activity. Or, the assistance of 2 or more helpers is required for the patient to complete the activity. If activity was not attempted, code reason: 7-Patient Refused. 9-Not Applicable-not attempted and the patient did not perform the activity before the current illness, exacerbation or injury. 10-Not Attempted due to Environmental Limitations-(lack of equipment, weather restraints, etc.). 88-Not Attempted due to Medical Conditions or Safety Concerns. Self Care: Independent Functional Cognition: Independent Drive Self: Yes OT Current Status Subjective Patient is agreeable to therapy, uses write clipboard, patient demonstrates mild anxiety w/ the unknown, Therapy is informative to process and procedures to ease patient anxiety Pain Numeric Pain Scale: 6 Mental Status/Objective Patient Orientation: Person, Place, Time, Situation Attachments: IV, Oxygen Current Upper Extremity ROM BUE ROM WFLS Upper Extremity Coordination FMC/GMC intact Upper Extremity Strength WFLs +4/5 grossly Slow moving, slow protective response, reaches for obstacles for balance and security. Reports tender throat and fearful of people touching the trach area ADL-Treatment Eating (QC): 88 (Swallow video to be peformed) Oral Hygiene (QC): 2 Shower/Bathe Self (QC): 88 Upper Body Dressing (QC): 3 Lower Body Dressing (QC): 3 On/Off Footwear (QC): 5 Toileting Hygiene (QC): 3 Education OT Patient Education: Correct positioning, Energy conservation, Exercise program, Modified ADL techniques, Progress toward Goal/Update tx plan, Rehab process, Safety issues, Transfer techniques Teaching Recipient: Patient Teaching Methods: Demonstration, Discussion Response to Teaching: Reinforcement Needed OT Warehouse Manager Goals Shelter Goals Eating (QC): 5 Oral Hygiene (QC): 5 Toileting Hygiene (QC): 5 Shower/Bathe Self (QC): 5 Upper Body Dressing (QC): 5 Lower Body Dressing (QC): 5 On/Off Footwear (QC): 6 1=Demonstrate adherence to instructed precautions during ADL tasks. 2=Patient will verbalize/demonstrate understanding of assistive devices/modifications for ADL. 3=Patient will improve strength/tolerance for activity to enable patient to perform ADL's. OT Education/Plan Problem List/Assessment Assessment: Decreased Activ Tolerance, Impaired Self-Care Skills Discharge Recommendations Plan/Recommendations: Continue POC Treatment Plan/Plan of Care Treatment,Training & Education: Yes Patient would benefit from OT for education, treatment and training to promote independence in ADL's, mobility, safety and/or upper extremity function for ADL's. Plan of Care: ADL Retraining, Functional Mobility, Group Exercise/Act as Ind, UE Funct Exercise/Act Treatment Duration: September 26, 2022 Frequency: 3 times per week Agreement: Yes Rehab Potential: Good OT provided transportation support to swallow study Time Start Time: 14:00 Stop Time: 14:30 DATE: September 23, 2022 Total Time Billed (hr/min): 30 Billed Treatment Time DANIEL RAI 30 min JAY WOODARD OT September 23, 2022 14:53
--- NOTE | 2022-09-23 15:06 | ST Mod Barium Swallow ---
Speech Evaluation-General Medical Diagnosis Dental Abscess, Right Pharyngeal Mass Onset Date: September 19, 2022 Therapy Diagnosis Therapy Diagnosis: Mild Oropharyngeal Dysphagia Precautions Precautions: Aspiration Precautions/Isolations: Aspiration, Standard Precautions Referral Referring Physician: Dr. Gonzalez Reason for Referral: Evaluation/Treatment Medical History Reviewed History: Yes Social History Current Living Status: Spouse Speech Mod Barium Swallow Oral Motor Skills Dentition Natural Dentures: Full (Poor dentition.) Lingual Protrusion: Abnormal (Limited protrusion due to trismus.) Lingual ROM: Abnormal (Decreased bilateral range of motion.) Lingual Strength: Abnormal (Reduced.) Volitional Dry Swallow: Yes Voluntary Cough: Yes Can Clear Throat Volitionally: Yes Oral Phase Labial Closure: No Impairment (WFL) Bolus Formation Pooling L/R: No Impairment (WFL) Bolus Formation Placement: No Impairment (WFL) A/P Lingual Propulsion: Mild Impairment Lingual Movement: Mild Impairment The patient demonstrated mild oral dysphagia throughout the assessment. Reduced lingual manipulation of the bolus occurred, with consistent premature spillage of the material visualized to the vallecular region. Pharyngeal Phase Swallow Response: Mild Impairment Base of Tongue: Mild Impairment Epiglottic Movement: Moderate Impairment Laryngeal Elevation: Mild Impairment Vallecular Residue: Moderate Pharyngeal Wall Residue: Mild Piriform Sinus Residue: Moderate Laryngeal Penetration: None Aspiration Observations: None The patient demonstrated moderate pharyngeal impairments to the swallow function. The pharyngeal swallow onset was present as the bolus material reached the laryngeal surface of the epiglottis. Mildly decreased laryngeal elevation and moderately decreased hyo-laryngeal excursion were present with incomplete epiglottic inversion. No laryngeal penetration or aspiration occurred. Mildly decreased base of tongue retraction and moderately reduced pharyngeal contractions were present. Moderate residue remained in the vallecular space and pyriform sinuses. A spontaneous swallow was effective at reducing pharyngeal residue. Clearance through the cricopharyngeal region was visualized. Summary/Impressions The patient demonstrated mild oropharyngeal dysphagia characterized by decreased lingual range of motion, reduced hyo-laryngeal excursion, decreased laryngeal elevation, reduced base of tongue retraction and decreased pharyngeal contractions. No laryngeal penetration or aspiration was visualized with any c onsistency tested. Recommendations: - Continue a clear liquid diet consistency, as tolerated. - Upgraded diet consistency should be approved by the surgeon. - Fully upright and alert for all P.O. intake. - Small, single bites and sips, only. - Crush medication/pills for administration. - Monitor for s/s of suspected aspiration with P.O. intake. If demonstrated, please contact speech pathology. - Consider supplements to reach daily nutritional needs. - Highly consider outpatient speech pathology for prophylactic dysphagia therapy, if appropriate. The results and recommendations were provided to the patient and the patient's , with review of the video swallow. All questions were answered within the scope of the clinician's practice. Speech Short Term Goals Short Term Goals Short Term Goals 1. The patient will display appropriate and safe use and care of the Passy Leatha Valve. 2. The patient will display safe swallowing strategies with 80% accuracy, independently. Time Frame-STG: Five Days. Speech Group Home Goals Web Content Writer Goals 1. The patient will display improved and/or return to phonation with ability to communicate verbally to others through the use of a Passy Friend Valve. 2. The patient will demonstrate tolerance of the least restrictive environment without s/s of suspected aspiration. Time Frame: One Week. Speech-Plan Treatment Plan Speech Therapy Treatment Plan: Continue Plan of Care Treatment Duration: October 02, 2022 Frequency: 4 times per week Estimated Hrs Per Day: .25 hour per day Rehab Potential: Good Pt/Family Agrees to Plan: Yes Safety Risks/Education Teaching Recipient: Patient, Significant Other Teaching Methods: Discussion, Audiovisual Response to Teaching: Verbalize Understanding Education Topics Provided: Results, Recommendations, Plan of Care, Safe Swallowing Strategies Time Speech Therapy Time In: 14:30 Speech Therapy Time Out: 15:00 DATE: September 23, 2022 Total Billed Time: 30 Billed Treatment Time MARJORIE Gustafson ELIZABETH September 23, 2022 15:06
[2022-09-23] MEDS: HYDROcodone/APAP 7.5MG-325 MG/15 ML (LORTAB) UDC PO PRN ×2 (16:07→20:59)
--- NOTE | 2022-09-23 16:21 | Diagnostic Imaging Report ---
INDICATION: Head and neck cancer with tracheostomy. FINDINGS: Patient ingested thin and thick barium as well as nectar-consistency boluses under fluoroscopic observation. Swallow motion appeared normal and there was no penetration or aspiration occurring with the boluses tested. There is mild residual contrast remaining within the pharyngeal recesses. Patient reported no significant difficulty to swallow. IMPRESSION: No penetration or aspiration. Please correlate with speech pathology results and recommendations. Dictated by: Dictated on workstation # [id number]
[2022-09-24] MEDS: D5 1/2 NS W/KCL 20 MEQ/L 1,000 ML IV SCH ×2 (02:58→17:39)
[2022-09-24] MEDS: PIPERACILLIN SODIUM/TAZOBACTAM 4.5 GM in NS (IVPB) 100 ML IV SCH ×2 (02:58→11:42)
[2022-09-24 03:01] VITALS: BP 130/70
[2022-09-24] MEDS: HYDROcodone/APAP 7.5MG-325 MG/15 ML (LORTAB) UDC PO PRN ×3 (03:01→20:53)
[2022-09-24 05:33] LABS: HEMATOCRIT 39 % (40-54); HEMOGLOBIN 13.1 g/dL (13.3-17.7); MEAN CORPUSCULAR HEMOGLOBIN 29 pg (25-34); MEAN CORPUSCULAR HGB CONC 34 g/dL (32-36); MEAN CORPUSCULAR VOLUME 85 fL (80-99); MEAN PLATELET VOLUME 9.9 fL (9.0-12.2); PLATELET COUNT 291 10^3/uL (130-400); WHITE BLOOD COUNT 5.5 10^3/uL (4.3-11.0)
[2022-09-24 05:59] LABS: CALCIUM 9.2 MG/DL (8.5-10.1); CREATININE SERUM 0.85 MG/DL (0.60-1.30); POTASSIUM 3.7 MMOL/L (3.6-5.0)
--- NOTE | 2022-09-24 06:11 | Progress Note ---
Standard Progress Note Progress Notes/Assess & Plan Date Seen by a Provider: September 24, 2022 Time Seen by a Provider: 06:00 Progress/Assessment & Plan ENTZach Reason for Consult: Throat Mass HPI: Patient admitted earlier today because of a dental abscess. On the ct of the neck it showed a large pharyngeal mass filling the valleculae and involving hte peiglottis on the right side. Patient reports problems swallowing for the last three weeks. It has not been treated in any fasion. He is having problems opening his mouth because of the right upper dental abscess. He has had dental problems for a long time. He is having no problems swallowing his saliva or breathing. He is on antibiotics for the dental abscess. [id number] X-ray review-shows large right sided pharyngeal mass which is exophytic and occludes the airway in the region of hte epiglottis. On the ct below the epiglottis looks clear. No marked adenopathy or abscss seen in the soft tissue of the neck. Teeth are in terible condition. Exam: General-no problems breathing voice sounds full but otherwise no stridor and no hoarseness Oral Cavity-mild to moderate trismus secondary to the dental abscess No mass seen at the posterior tongue. ON the right side the tonsil appears swollen in the mid tonsillar region. Tonsil on left is small Neck-tender in right jugulodigastric region and low in the neck in the midline but no marked swelling or absess felt Fiberoptic Lryngoscopy 4% xylocaine used to anesthetize the left side of the nose. ON exam, the nasopharynx was clear. Hypopharynx showed a large softitssue mass which occludes 80-90% of th airway above the level fo the cords. The cords themselves were clear. I was able to get around the mass with the fiberoptic laryngoscope and from the area of the petiole of hte epiglottis to the elvel fo hte cords it was clear. No pooling of secretions seen IMP: 1. 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 Dental Abscess Rec: 1. I reviewed the findings with the patient. He will need biopsy and removal of the cyst/mass for diagnosis and potential treatment. The mass does occlude most of the airway. Will speak with anesthesia regarding their comfort level with the above findings. If not comfortable will need to transfer to a higher level of care to do this. The ptient knows there is a possibility of needing transfer. Once I talk with anesthesia then will make a final decision. Dental abscess needs to get some better before surgery to decrease the amount of trismus present. His airway is stable at this time. Talked with anesthesia regardign the patietn and she will go past to assess the patient and we can make an informed decsioin on whether to proceed with surgery or transfer [place] 09/20-6am Patient seen. Has been evaluated by anesthesia. Symptoms no better no airway issue Exam-clinically hasnt changed dental abscess swellign some better no marked swelling seen in the neck good neck mobility voice is normal IMP: Large Pharyngeal mass Dental ABscess-better Rec: 1. Patient will need surgery for diagnosis and treatment. Risks benefits of the surgery including possilbe airwayu obstruction and were discussed. The possilbe need for a tracheostomy was discussed as well. The surger y is adriect laryngosocpy with biopsy/debridement and possible tracheostomy. He understands the tube will be put down with him awake. He has been NPO. Will proceed with surgery when crew and anesthesia are here. BYM-Antik-4el Had to do an awake trach; unable to endotracheally intubate #[address]-tied and sewn in palce do not touch the trach ties will get chest x-ray in RR NPOas cuff is up on the trach if doing well will deflate the cuff this afternoon or tomrrow morning once cuff deflated then can take some po liquids 40% oxygen trach collar-cool mist other order per dR Tamez or CHASE-whichever is being done I will check in with him this afternoon to see how he is doing. the pathology will take a few days to get back he will have some oozing from the trach site and also where we did the biopsy in the right tonsil region and supraglottis [place] 09/20-1700 ptient has done well post srugically-breathing easily-maintaining his sat urations small amount of drainage pain controlled with dilaudid exam-site with a mild amount of old blood-no active bleeding seen cuff taken down on trach was able to swallow a sip of wtaer-not able to talk yet as long as does ok tonight then back down to the floor tomorrow-waiting game on the pathology HOme needs: mist machine and suction machine will need a number 6 cuffless shiley to bedside for firsttrach change later this week will rrange for the next steps in eval and care once the pathology is known clear liquids is fine for khushi with sips of liquids as he can-if it causes too much coughing then would back off some Petrona-15-6am doing well taking sips of water without problem still not talking at all trach site looks good ok with me to transfer back to floor with current trach site orders will be out of town on so willsee the patient on wednesday waiting game for pathology needs to have all teeth removed at some point for his health and probaly in anticipation for treatment [place] 09/23 6am overall doing well taking some liquids breathing easily still complains of pain-has a fentanyl patch now exam trach site looks good Rec: 1. will change trach before discharge-waiting on path r eport and then can decide what trach to put in 2. optimally plan on chanign trach on if we get path bck and t hen justice 3. will have agame plan on treatment once we get path back 4. may be up and ambulate 5. needs for justice-at a minimum will need a suciton machine and mist machine 6. will follow up on thr am or sooner if path gets back [place] 09/24-6am still waiting on path report-talked with them yesterday-looks like earliest would be alter today but could be wednesday or even wednesday Trach site-looks good will plan on changing trach on wednesday am and then could go home from my rafael and dexter see back in the clinic to reprot path and make arrangmetns for further treatment evaluations if needed ptient will need all teeth removed-they are in terrible condition. if this is a cancer then they would need to be removed anyway for radition signed orders for all the home supplies and they melee in his notebook will be in early on wednesday am to change the trach need a number 6 cuffed shiley to bedside along with a suture set please SARAH PETERSON MD September 24, 2022 06:10
[2022-09-24] MEDS: KETOROLAC 30 MG/ML VIAL IV PRN (07:43)
[2022-09-24 07:45] VITALS: BP 145/88
[2022-09-24] MEDS: amLODIPine 10 MG (NORVASC) TAB PO SCH (08:17)
--- NOTE | 2022-09-24 10:40 | Physical Therapy Daily Note ---
PT Daily Note-Current Subjective Patient agrees to PT. Pain Section J - Health Conditions 1. Rarely or not at all 2. Occasionally 3. Frequently 4. Almost constantly 8. Unable to answer Pain Effect on Sleep: 1 Pain Interference with Therapy: 1 Pain Interference w/Day-to-Day: 1 Mental Status Attachments: IV Transfers SCALE: Activities may be completed with or without assistive devices. 1-Gfezdlpqey-aovbyvq completes the activity by him/herself with no assistance from a helper. 5-Set-up or Clean-up Assistance-helper sets up or cleans up; patient completes activity. [place] assists only prior to or following the activity. 4-Supervision or Touching Assistance-helper provides verbal cues and/or touc cherelle/steadying and/or contact guard assistance as patient completes activity. Assistance may be provided throughout the activity or intermittently. 3-Partial/Moderate Assistance-helper does LESS THAN HALF the effort. [place] lifts, holds or supports trunk or limbs, but provides less than half the effort. 2-Substantial/Maximal Assistance-helper does MORE THAN HALF the effort. [place] lifts or holds trunk or limbs and provides more than half the effort. 5-Bscnvkdlr-kuambk does ALL the effort. Patient does none of the effort to complete the activity. Or, the assistance of 2 or more helpers is required for the patient to complete the activity. If activity was not attempted, code reason: 7-Patient Refused. 9-Not Applicable-not attempted and the patient did not perform the activity before the current illness, exacerbation or injury. 10-Not Attempted due to Environmental Limitations-(lack of equipment, weather restraints, etc.). 88-Not Attempted due to Medical Conditions or Safety Concerns. Sit to Lying (QC): 6 Lying to Sitting/Side of Bed(Q: 6 Sit to Stand (QC): 6 Weight Bearing Right Lower Extremity: Right Weight Bearing/Tolerated Left Lower Extremity: Left Weight Bearing/Tolerated Gait Training Distance: 300' x 2 Walk 10 feet (QC): 6 Walk 50 ft with 2 Turns(QC): 6 Walk 150 ft (QC): 6 Gait Assistive Device: None Stair Training Stair Training: Handrails/: 1 handrail #of Steps: 4 1 Step (curb) (QC): 6 4 Steps (QC): 6 Stairs: Pattern: Reciprocal Assessment Patient is currently at independent PLOF with all gross motor skills and no longer requires skilled PT intervention. Nursing staff instructed to ambulate with patient PRN. Both voice understanding. PT Residential Goals Cardiopulmonary Specialist Goals PT Residential Goals Time Frame: October 07, 2022 Roll Left & Right (QC): 6 Sit to Lying (QC): 6 Lying-Sitting on Side/Bed(QC): 6 Sit to Stand (QC): 6 Chair/Npo-zk-Ykqvu Xfer(QC): 6 Toilet Transfer (QC): 6 Car Transfer (QC): 6 Does the Patient Walk: Yes Walk 10 feet (QC): 6 Walk 50ft with 2 Turns (QC): 6 Walk 150 ft (QC): 6 1 Step (curb) (QC): 6 4 Steps (QC): 6 12 Steps (QC): 6 PT Plan Treatment/Plan Treatment Plan: Continue Plan of Care Treatment Plan: Bed Mobility, Education, Functional Activity Kaity, Functional Strength, Group Therapy, Gait, Safety, Therapeutic Exercise, Transfers Treatment Duration: October 07, 2022 Frequency: 6 times per week Estimated Hrs Per Day: .25 hour per day Patient and/or Family Agrees t: Yes Time Time In: 942 Time Out: 955 DATE: September 24, 2022 Total Billed Treatment Time: 13 Total Billed Treatment 1 visit FA 13 min [facility] PT September 24, 2022 10:40
--- NOTE | 2022-09-24 10:45 | Occupational Ther Daily Note ---
OT Current Status-Daily Note Subjective Agreeable tot OT., demonstrates some anxiety w/ activity and not having present Mental Status/Objective Patient Orientation: Situation ADL-Treatment Therapy Code Descriptions/Definitions Functional [place] Measure: 0=Not Assessed/NA 4=Minimal Assistance 1=Total Assistance 5=Supervision or Setup 2=Maximal Assistance 6=Modified [place] 3=Moderate Assistance 7=Complete IndependenceSCALE: Activities may be completed with or without assistive devices. 3-Thdreqrzdh-cfuauzw completes the activity by him/herself with no assistance from a helper. 5-Set-up or Clean-up Assistance-helper sets up or cleans up; patient completes activity. [place] assists only prior to or following the activity. 4-Supervision or Touching Assistance-helper provides verbal cues and/or touching/steadying and/or contact guard assistance as patient completes activity. Assistance may be provided throughout the activity or intermittently. 3-Partial/Moderate Assistance-helper does LESS THAN HALF the effort. [place] lifts, holds or supports trunk or limbs, but provides less than half the effort. 2-Substantial/Maximal Assistance-helper does MORE THAN HALF the effort. [place] lifts or holds trunk or limbs and provides more than half the effort. 5-Dovwudfmi-eulcmw does ALL the effort. Patient does none of the effort to complete the activity. Or, the assistance of 2 or more helpers is required for the patient to complete the activity. If activity was not attempted, code reason: 7-Patient Refused. 9-Not Applicable-not attempted and the patient did not perform the activity before the current illness, exacerbation or injury. 10-Not Attempted due to Environmental Limitations-(lack of equipment, weather restraints, etc.). 88-Not Attempted due to Medical Conditions or Safety Concerns. Eating (QC): 5 (see ST ) Oral Hygiene (QC): 4 Shower/Bathe Self (QC): 88 Upper Body Dressing (QC): 4 Lower Body Dressing (QC): 5 On/Off Footwear: 5 Toileting Hygiene (QC): 5 Toilet Transfer (QC): 5 Pateint fearful of hygiene tasks near the proximity of trach, anxiety of garments near tach Education OT Patient Education: Disease process, Exercise program, Modified ADL techniques, Progress toward Goal/Update tx plan, Purpose of tx/functional activities, Reviewed precautions, Rehab process, Safety issues, Transfer techniques, Use of adapted equipment Teaching Recipient: Patient Teaching Methods: Demonstration, Discussion Response to Teaching: Reinforcement Needed OT Residential Goals Bus And Rail Operator Goals Eating (QC): 5 Oral Hygiene (QC): 5 Toileting Hygiene (QC): 5 Shower/Bathe Self (QC): 5 Upper Body Dressing (QC): 5 Lower Body Dressing (QC): 5 On/Off Footwear (QC): 6 1=Demonstrate adherence to instructed precautions during ADL tasks. 2=Patient will verbalize/demonstrate understanding of assistive devices/modifications for ADL. 3=Patient will improve strength/tolerance for activity to enable patient to perf orm ADL's. OT Education/Plan Discharge Recommendations Plan/Recommendations: Continue POC Treatment Plan/Plan of Care Treatment,Training & Education: Yes Patient would benefit from OT for education, treatment and training to promote independence in ADL's, mobility, safety and/or upper extremity function for ADL's. Plan of Care: ADL Retraining, Functional Mobility, Group Exercise/Act as Ind, UE Funct Exercise/Act Treatment Duration: September 26, 2022 Frequency: 3 times per week Agreement: Yes Rehab Potential: Good Declines sitting in recliner, returns to bed sitting upright Time Start Time: 09:45 Stop Time: 09:55 DATE: September 24, 2022 Total Time Billed (hr/min): 10 Billed Treatment Time ADL 10 min JAY WOODARD OT September 24, 2022 10:45
[2022-09-24 12:21] VITALS: BP 138/87
--- NOTE | 2022-09-24 12:21 | Speech Therapy Daily Note ---
Speech Daily Progress Note Subjective Date Seen by Provider: September 24, 2022 Time Seen by Provider: 09:15 The patient was seated upright in the bed, awake and alert, upon entrance to his room by the clinician. The patient greets the clinician via eye contact and gestures. The patient is agreeable to participation in the skilled treatment session. Objective The patient and clinician reviewed safe swallowing strategies and r ecommendations. Per patient, his diet consistency was recently upgraded and he did "well" with breakfast. The patient stated he experienced difficulties with the eggs and the clinician discussed the importance of avoiding difficulty consistencies at this time. S/s of suspected aspiration were reviewed with the patient and he verbalized comprehension of the material. The clinician discussed the speaking valve with the patient following swallowing discussions. The clinician offered a mirror for viewing the tracheostomy site however the patient politely refused at this time. The patient was agreeable to digital occlusion of the tracheostomy site by the clinician for voicing attempts. The patient's SpO2% remained at 95% throughout voicing attempts. The clinician attempted voicing on two attempts with limited success at this time. Increased back flow was experienced with digital occlusion was removed. Following the second attempt, the patient politely deferred additional trials. The speaking valve was shown to the patient in attempts to build comfort with the device as rehabilitation continues. The speaking valve is currently with the clinician. At this time, the clinician recommends to continue with the current plan of care. Following discharge, outpatient speech pathology services are highly recommended. Assessment Assessment Current Status: Good Progress Treatment Plan Continue Plan of Care Speech Short Term Goals Short Term Goals Short Term Goals 1. The patient will display appropriate and safe use and care of the Passy Leatha Valve. 2. The patient will display safe swallowing strategies with 80% accuracy, independently. Time Frame-STG: Five Days. Speech Safety Representative Goals Safety Representative Goals 1. The patient will display improved and/or return to phonation with ability to communicate verbally to others through the use of a Passy [place] Valve. 2. The patient will demonstrate tolerance of the least restrictive environment without s/s of suspected aspiration. Time Frame: One Week. Speech-Plan Treatment Plan Speech Therapy Treatment Plan: Continue Plan of Care Treatment Duration: October 02, 2022 Frequency: 4 times per week Estimated Hrs Per Day: .25 hour per day Rehab Potential: Good Pt/Family Agrees to Plan: Yes Safety Risks/Education Teaching Recipient: Patient Teaching Methods: Discussion Response to Teaching: Verbalize Understanding Education Topics Provided: Speaking Valve, Safe Swallowing Precautions Time Speech Therapy Time In: 09:15 Speech Therapy Time Out: 09:45 DATE: September 24, 2022 Total Billed Time: 30 Billed Treatment Time 1, SHAISTA, LARRY DANIELS September 24, 2022 12:21
--- NOTE | 2022-09-24 12:54 | Progress Note - Hospitalist ---
Subjective HPI/CC On Admission Date Seen by Provider: September 24, 2022 Tramaine Berry is a 52y M who presented to the ED this morning with worsening right dental pain and swelling for the past few weeks. Subjective/Events-last exam Pt doing well. Pain controlled but still present. Plan to switch to all oral meds in preparation for DC tomorrow. Objective Exam Vital Signs Vital Signs Date Time Temp Pulse Resp B/P (MAP) Pulse Ox O2 Delivery O2 Flow Rate FiO2 09/24/22 12:21 36.4 52 18 138/87 (104) 97 Nasal Cannula 6.00 09/24/22 11:11 21 Capillary Refill : Less Than 3 SecondsLess Than 3 Seconds General Appearance: No Apparent Distress, Obese Neck: Other (trach) Cardiovascular: Regular Rate, Rhythm, No Murmur Neurologic/Psychiatric: Alert, Oriented x3 Results/Procedures Lab Laboratory Tests 09/24/22 05:10 Patient resulted labs reviewed. Imaging: Reviewed Imaging Films, Reviewed Imaging Report Assessment/Plan Assessment and Plan Assess & Plan/Chief Complaint Pharyngeal mass Dysphagia s/p tracheostomy Dental Abscesses Poor dentition s/p resection and trach by Dr Gonzalez on 09/20 Continue Zosyn Continue pain regimen- encourage liquid hydrocodone as well to try and get off IV meds in preparation for discharge Dr Gonzalez consulted, appreciate recs Path pending still Umbilical hernia No pain and easily reduced Outpatient follow up HTN Continue amlodipine Critical Care Critically Ill Patient ELDA HUANG MD September 24, 2022 12:54
[2022-09-24 16:00] VITALS: BP 132/77
[2022-09-24] MEDS: AUGMENTIN 875 MG TAB (AMOXICILLIN/CLAVULANATE) PO SCH (17:37)
[2022-09-24 19:32] VITALS: BP 135/79
[2022-09-24 23:20] VITALS: BP 157/90
[2022-09-25 03:26] VITALS: BP 148/95
[2022-09-25] MEDS: HYDROcodone/APAP 7.5MG-325 MG/15 ML (LORTAB) UDC PO PRN ×3 (03:47→15:21)
[2022-09-25] MEDS: D5 1/2 NS W/KCL 20 MEQ/L 1,000 ML IV SCH (03:48)
[2022-09-25 05:47] LABS: HEMATOCRIT 40 % (40-54); HEMOGLOBIN 13.5 g/dL (13.3-17.7); MEAN CORPUSCULAR HEMOGLOBIN 29 pg (25-34); MEAN CORPUSCULAR HGB CONC 34 g/dL (32-36); MEAN CORPUSCULAR VOLUME 85 fL (80-99); MEAN PLATELET VOLUME 9.9 fL (9.0-12.2); PLATELET COUNT 300 10^3/uL (130-400)
[2022-09-25 06:23] LABS: POTASSIUM 3.8 MMOL/L (3.6-5.0)
[2022-09-25 06:25] LABS: CALCIUM 9.2 MG/DL (8.5-10.1)
[2022-09-25 06:29] LABS: CREATININE SERUM 0.81 MG/DL (0.60-1.30)
--- NOTE | 2022-09-25 06:56 | Progress Note ---
Standard Progress Note Progress Notes/Assess & Plan Date Seen by a Provider: September 25, 2022 Time Seen by a Provider: 06:00 Progress/Assessment & Plan ENTZach Reason for Consult: Throat Mass HPI: Patient admitted earlier today because of a dental abscess. On the ct of the neck it showed a large pharyngeal mass filling the valleculae and involving hte peiglottis on the right side. Patient reports problems swallowing for the last three weeks. It has not been treated in any fasion. He is having problems opening his mouth because of the right upper dental abscess. He has had dental problems for a long time. He is having no problems swallowing his saliva or breathing. He is on antibiotics for the dental abscess. wbc-10.4 X-ray review-shows large right sided pharyngeal mass which is exophytic and occludes the airway in the region of hte epiglottis. On the ct below the epiglottis looks clear. No marked adenopathy or abscss seen in the soft tissue of the neck. Teeth are in terible condition. Exam: General-no problems breathing voice sounds full but otherwise no stridor and no hoarseness Oral Cavity-mild to moderate trismus secondary to the dental abscess No mass seen at the posterior tongue. ON the right side the tonsil appears swollen in the mid tonsillar region. Tonsil on left is small Neck-tender in right jugulodigastric region and low in the neck in the midline but no marked swelling or absess felt Fiberoptic Lryngoscopy 4% xylocaine used to anesthetize the left side of the nose. ON exam, the nasopharynx was clear. Hypopharynx showed a large softitssue mass which occludes 80-90% of th airway above the level fo the cords. The cords themselves were clear. I was able to get around the mass with the fiberoptic laryngoscope and from the area of the petiole of hte epiglottis to the elvel fo hte cords it was clear. No pooling of secretions seen IMP: 1. 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 Dental Abscess Rec: 1. I reviewed the findings with the patient. He will need biopsy and removal of the cyst/mass for diagnosis and potential treatment. The mass does occlude most of the airway. Will speak with anesthesia regarding their comfort level with the above findings. If not comfortable will need to transfer to a higher level of care to do this. The ptient knows there is a possibility of needing transfer. Once I talk with anesthesia then will make a final decision. Dental abscess needs to get some better before surgery to decrease the amount of trismus present. His airway is stable at this time. Talked with anesthesia regardign the patietn and she will go past to assess the patient and we can make an informed decsioin on whether to proceed with surgery or transfer [place] 09/20-6am Patient seen. Has been evaluated by anesthesia. Symptoms no better no airway issue Exam-clinically hasnt changed dental abscess swellign some better no marked swelling seen in the neck good neck mobility voice is normal IMP: Large Pharyngeal mass Dental ABscess-better Rec: 1. Patient will need surgery for diagnosis and treatment. Risks benefits of the surgery including possilbe airwayu obstruction and were discussed. The possilbe need for a tracheostomy was discussed as well. The surger y is adriect laryngosocpy with biopsy/debridement and possible tracheostomy. He understands the tube will be put down with him awake. He has been NPO. Will proceed with surgery when crew and anesthesia are here. [id number] Had to do an awake trach; unable to endotracheally intubate #[address]-tied and sewn in palce do not touch the trach ties will get chest x-ray in RR NPOas cuff is up on the trach if doing well will deflate the cuff this afternoon or tomrrow morning once cuff deflated then can take some po liquids 40% oxygen trach collar-cool mist other order per dR Tamez or [facility]-whichever is being done I will check in with him this afternoon to see how he is doing. the pathology will take a few days to get back he will have some oozing from the trach site and also where we did the biopsy in the right tonsil region and supraglottis [place] 09/20-1700 ptient has done well post srugically-breathing easily-maintaining his sat urations small amount of drainage pain controlled with dilaudid exam-site with a mild amount of old blood-no active bleeding seen cuff taken down on trach was able to swallow a sip of wtaer-not able to talk yet as long as does ok tonight then back down to the floor tomorrow-waiting game on the pathology HOme needs: mist machine and suction machine will need a number 6 cuffless shiley to bedside for firsttrach change later this week will rrange for the next steps in eval and care once the pathology is known clear liquids is fine for khushi with sips of liquids as he can-if it causes too much coughing then would back off some Petrona-15-6am doing well taking sips of water without problem still not talking at all trach site looks good ok with me to transfer back to floor with current trach site orders will be out of town on so willsee the patient on wednesday waiting game for pathology needs to have all teeth removed at some point for his health and probaly in anticipation for treatment [place] 09/23 6am overall doing well taking some liquids breathing easily still complains of pain-has a fentanyl patch now exam trach site looks good Rec: 1. will change trach before discharge-waiting on path r eport and then can decide what trach to put in 2. optimally plan on chanign trach on if we get path bck and t hen justice 3. will have agame plan on treatment once we get path back 4. may be up and ambulate 5. needs for justice-at a minimum will need a suciton machine and mist machine 6. will follow up on thr am or sooner if path gets back [place] 09/24-6am still waiting on path report-talked with them yesterday-looks like earliest would be alter today but could be wednesday or even wednesday Trach site-looks good will plan on changing trach on wednesday and then could go home from my rafael and dexter see back in the clinic to reprot path and make arrangmetns for further treatment evaluations if needed ptient will need all teeth removed-they are in terrible condition. if this is a cancer then they would need to be removed anyway for radition signed orders for all the home supplies and they melee in his notebook will be in early on wednesday am to change the trach need a number 6 cuffed shiley to bedside along with a suture set please [place]-09/25-6am doing well Trach-changed today-new number 6 cuffed shiley trach tube placed and anchored with a trach strap the inner canula in the package fit however the disposable single use inner canula did not-will have to talk with dme to see if the new one is available the inner canula is from the same comapny and have used alot in the past but now it doesnt fit with new trach-which is the same as what we have in originally I talked with the pathologist yesterday and 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 our office will make arrangmetns for him and call with that apt time from my standpoint may go home later today once trach supplies and mist machine and suction available for him at home SARAH PETERSON MD September 25, 2022 06:56
[2022-09-25 07:53] VITALS: BP 143/90
[2022-09-25] MEDS: AUGMENTIN 875 MG TAB (AMOXICILLIN/CLAVULANATE) PO SCH (08:18)
[2022-09-25] MEDS: amLODIPine 10 MG (NORVASC) TAB PO SCH (08:18)
[2022-09-25] MEDS ORDERED: FENTANYL PATCH REMOVAL TP SCH (10:59)
--- NOTE | 2022-09-25 11:00 | Discharge Summary ---
Diagnosis/Chief Complaint Date of Admission September 19, 2022 at 07:57 Date of Discharge Discharge Date: September 25, 2022 Admission Diagnosis Dental abscesses Primary Care No,Local Physician Discharge Diagnosis (1) Tracheostomy in place Status: Acute (2) Tonsillar mass Status: Acute (3) Dental abscess Status: Acute (4) HTN (hypertension) Status: Acute (5) Obesity Status: Chronic Discharge Summary Discharge Physical Exam Allergies: Coded Allergies: No Known Drug Allergies (Unverified , 09/19/22) Vitals & I&Os Vital Signs Date Time Temp Pulse Resp B/P (MAP) Pulse Ox O2 Delivery O2 Flow Rate FiO2 09/25/22 11:10 36.1 60 16 141/88 (105) 98 Trach Collar 6.00 09/25/22 10:19 21 General Appearance: No Apparent Distress, Obese Respiratory: Other (trach) Neurologic/Psychiatric: Alert, Oriented x3 Hospital Course Patient was admitted to the hospital secondary to tonsillar mass obstructing airway. Dr. Gonzalez was consulted and he underwent resection of the mass with tracheostomy placement. He was also found to have dental abscesses was treated with IV antibiotics. He underwent his first trach change here with Dr. Gonzalez. 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 He is to follow-up with Dr. Gonzalez as an outpatient. Dr. Gonzalez has also arranged for all of that DME he will need at home for his trach including mist machine and suction. Respiratory therapy was consulted and educated patient and family on trach care. He was found to be newly hypertensive and was started on amlodipine and did well. Speech therapy saw and evaluated patient and patient did well on a minced and moist diet. He was given information on this diet regimen for discharge. He was weaned off of oxygen prior to discharge. He is going to follow-up with Dr. Gonzalez as an outpatient and medical oncology for further treatment of his cancer. He will also need to establish with a primary care physician. Labs (last 24 hrs) Laboratory Tests 09/24/22 17:53: Glucometer 117H 09/24/22 23:23: Glucometer 103 09/25/22 05:21: Glucometer 94 09/25/22 05:22: White Blood Count 6.0, Red Blood Count 4.72, Hemoglobin 13.5, Hematocrit 40, Mean Corpuscular Volume 85, Mean Corpuscular Hemoglobin 29, Mean Corpuscular Hemoglobin Concent 34, Red Cell Distribution Width 12.8, Platelet Count 300, Mean Platelet Volume 9.9, Sodium Level 138, Potassium Level 3.8, Chloride Level 105, Carbon Dioxide Level 21, Anion Gap 12, Blood Urea Nitrogen 5L, Creatinine 0.81, Estimat Glomerular Filtration Rate 107, BUN/Creatinine Ratio 6, Glucose Level 100, Calcium Level 9.2 09/25/22 11:13: Glucometer 101 Microbiology 09/19/22 MRSA Screen - Final, Complete No growth Patient resulted labs reviewed. Pending Labs Laboratory Tests 09/25/22 11:13: Glucometer 101 Imaging: Reviewed Imaging Films, Reviewed Imaging Report Discussion & Recommendations Discharge Planning: >30 minutes discharge planning Discharge Home Medications: Active Scripts Active Lortab 7.5-325 Mg/15 Ml Udc (Acetaminophen/Hydrocodone Bitart) 15 Ml Solution 15 Ml PO Q4H PRN Fentanyl Patch 50 MCG (Fentanyl) 50 Mcg/Hour Patch.td72 50 Mcg TD Q72H Amlodipine Besylate 10 Mg Tablet 10 Mg PO DAILY Amox Tr-K Clv 875-125 mg Tab (Amoxicillin/Potassium Clav) 875 Mg-125 Mg Tablet 875 Mg PO BID WITH MEALS Instructions to patient/family Please see electronic discharge instructions given to patient. ELDA HUANG MD September 25, 2022 11:00
[2022-09-25] MEDS ORDERED: HYDR15SO6 PO (11:02)
[2022-09-25] MEDS ORDERED: AMLO-251 PO (11:02)
[2022-09-25] MEDS ORDERED: AMOX1TAB12 PO (11:02)
[2022-09-25] MEDS ORDERED: FENT1PAT9 TD (11:02)
--- NOTE | 2022-09-25 11:07 | Occ Therapy Progress Note ---
Therapy Progress Note [id number] Pt seen in room, anticipating DC today. He declined OT, writing, "After the bad news, I feel like crap". Pt encouraged to follow up with good oral hygiene at home and he nodded understanding. visit KIANA MONGE OT September 25, 2022 11:07
[2022-09-25 11:10] VITALS: BP 141/88
[2022-09-25] MEDS: fentaNYL PATCH 50 MCG (DURAGESIC) TD SCH (11:58)
--- NOTE | 2022-09-25 14:31 | Discharge Inst-Simple/Standard ---
Discharge Inst-Standard Discharge Medications New, Converted or Re-Newed RX: Transmitted to Pharmacy Patient Instructions/Follow Up Plan of Care/Instructions/FU: Please continue to take your medications as written. Please follow up with your primary care doctor to follow up this hospital stay. Activity as Tolerated: Yes Discharge Diet: Other Diet (MInced and moist- info in discharge packet) Return to The Hospital For: Chest pain, shortness of breath, difficulty breathing, fever, weakness, if you feel you are getting worse. ELDA HUANG MD September 25, 2022 14:23
== END 2022-09-25 16:33 | disposition home health service (06) | DRG 13 ==
LOC: ER 04:08 → 4TH 07:57 → ICU 09-20 09:12 → 4TH 09-21 10:27
PROVIDERS: ADMIT Internal Medicine; ATTEND Family Medicine
PROC: 0B110Z4 Bypass Trachea to Cutaneous, Open Approach (ICD-10-PCS; principal; 2022-09-20 07:43)
PROC: 0CBM8ZX Excision of Pharynx, Via Natural or Artificial Opening Endoscopic, Diagnostic (ICD-10-PCS; 2022-09-20 07:43)
DX: C82.91 Follicular lymphoma, unspecified, lymph nodes of head, face, and neck (principal); J35.9 Chronic disease of tonsils and adenoids, unspecified; K04.7 Periapical abscess without sinus; R13.10 Dysphagia, unspecified; I10 Essential (primary) hypertension; E66.9 Obesity, unspecified; Z68.36 Body mass index [BMI] 36.0-36.9, adult; J39.2 Other diseases of pharynx
CPT/HCPCS: 36415; 70487; 71045; 74230; 80048; 80053; 80306; 80320; 82947; 83605; 84484; 85025; 85027; 85652; 86141; 87081; 88305; 88341; 88342; 88360; 93005; 93041; 94640; 94760; 94761; 96361; 96365; 96375

== ENCOUNTER 2022-09-29 12:50 | Outpatient (RCR) | payer OTHER ==
[~2022-09-29 12:50] MED LIST: AMLO-251 PO; AMOX1TAB12 PO; FENT1PAT9 TD; HYDR15SO6 PO
[2022-09-29 14:42] LABS: ALBUMIN 4.2 GM/DL (3.2-4.5); BILIRUBIN,TOTAL 0.4 MG/DL (0.1-1.0); CALCIUM 9.8 MG/DL (8.5-10.1); CREATININE SERUM 0.92 MG/DL (0.60-1.30); POTASSIUM 4.1 MMOL/L (3.6-5.0); TOTAL PROTEIN 7.5 GM/DL (6.4-8.2); URIC ACID 6.3 MG/DL (2.6-7.2)
[2022-10-02] MEDS ORDERED: MUPI15CR11 TP (21:21)
== END 2022-10-07 | disposition home or self-care (01) ==
LOC: ONC 12:50
PROVIDERS: ATTEND Internal Medicine Hematology & Oncology
DX: C83.10 Mantle cell lymphoma, unspecified site (principal)
CPT/HCPCS: 80053; 83615; 84550

== ENCOUNTER 2022-10-02 20:15 | Emergency (ER) | payer SELFPAY ==
[~2022-10-02] VITALS: Ht 172.7 cm; Wt 106.5 kg
--- NOTE | 2022-10-02 21:05 | ED Integumentary General ---
General Chief Complaint: Catheter/Drain/Tube Problems Stated Complaint: INFECTION AROUND TRACH Nursing Triage Note: PT AMB TO RM 3 WITH C/O SKIN BREAKDOWN UNDER TRACH. PT STATED THAT IT WAS BLOODY THIS MORNING WHEN HE CHANGED THE DRESSING AND THEN GREENISH/YELLOWISH PUS TONIGHT. PT STATES THAT HE HAD THE TRACH PLACED ON 09/21/[address] GONZALEZ. Source: patient Exam Limitations: no limitations (EDWARD RAMIREZ APRN) History of Present Illness Date Seen by Provider: October 02, 2022 Time Seen by Provider: 20:55 Initial Comments 52-year-old male presents to the ER with complaints of a wound below his trach with yellow purulent drainage. He states he just noted the drainage in the wound this evening approximately 1 hour prior to arrival. He had the trach placed by Dr. Gonzalez on 09/21/2022 for throat cancer. He states that he changes the bandage several times a day, and just noticed the new wound and drainage tonight. He denies any fevers. (EDWARD RAMIREZ APRN) Allergies and Home Medications Allergies Coded Allergies: No Known Drug Allergies (Unverified , 09/19/22) Patient Home Medication List Home Medication List Reviewed: Yes (EDWARD RAMIREZ APRN) Amlodipine Besylate (Amlodipine Besylate) 10 Mg Tablet, 10 MG PO DAILY Prescribed by: ELDA HUANG on 09/25/22 1102 Amoxicillin/Potassium Clav (Amox Tr-K Clv 875-125 mg Tab) 875 Mg-125 Mg Tablet, 875 MG PO BID WITH MEALS Prescribed by: ELDA HUANG on 09/25/22 1102 Fentanyl (Fentanyl Patch 50 MCG) 50 Mcg/Hour Patch.td72, 50 MCG TD Q72H Prescribed by: ELDA HUANG on 09/25/22 1103 Hydrocodone Bit/Acetaminophen (Lortab 7.5-325 Mg/15 Ml Udc) 15 Ml Solution, 15 ML PO Q4H PRN for PAIN-MODERATE (5-7) Prescribed by: ELDA HUANG on 09/25/22 1103 Review of Systems Review of Systems Constitutional: see HPI Skin: other (Wound with purulent drainage under trach) (EDWARD RAMIREZ APRN) Past Uevkyfz-Bvxmqu-Vidadc Hx Patient Social History Tobacco Use?: No Substance use?: No Alcohol Use?: No (EDWARD RAMIREZ APRN) Past Medical History Ear Surgery, Gallbladder Currently Using CPAP: No Currently Using BIPAP: No (EDWARD RAMIREZ APRN) Family Medical History Cancer (EDWARD RAMIREZ APRN) Physical Exam Vital Signs Vital Signs - First Documented 10/02/22 20:45 Temp 36.8 Pulse 76 B/P (MAP) 140/99 (113) Pulse Ox 96 O2 Delivery Room Air (CHICO ESPINOZA MD) Vital Signs Capillary Refill : (EDWARD RAMIREZ APRN) General Appearance: WD/WN, no apparent distress Neck: supple, normal inspection Cardiovascular: regular rate, rhythm Respiratory: lungs clear, normal breath sounds, no respiratory distress, no accessory muscle use Neurologic/Psychiatric: alert, normal mood/affect Skin: normal color, warm/dry Skin Problem Location: neck Skin Problem Character: other (Wound with purulent drainage) (EDWARD RAMIREZ APRN) Progress/Results/Core Measures Results/Orders Vital Signs/I&O 10/02/22 10/02/22 20:45 21:45 Temp 36.8 Pulse 76 84 B/P (MAP) 140/99 (113) 144/85 Pulse Ox 96 96 O2 Delivery Room Air Room Air (CHICO ESPINOZA MD) Blood Pressure Mean: 113 Progress Progress Note : Progress Note Patient seen and evaluated, resting comfortably in bed, no acute distress. Wound noted with purulent drainage under plastic part of trach mondragon. Wound likely caused by friction between trach collar and skin. Patient has a short neck and is larger in size. Patient only had 1 gauze underneath the trach holde r. Will discharge with Bactroban ointment and instructions to use 2 to 3 pieces of gauze under trach mondragon. Patient is agreeable to this plan. Discharge instructions and return precautions provided. (EDWARD RAMIREZ APRN) Departure Impression Primary Impression: Tracheostomy complication Qualified Codes: J95.00 - Unspecified tracheostomy complication Disposition: HOME, SELF-CARE Condition: Stable Departure-Patient Inst. Decision time for Depature: 21:19 (EDWARD RAMIREZ APRN) Referrals: NO,LOCAL PHYSICIAN (PCP/Family) Primary Care Physician Patient Instructions: How to Care for a Tracheostomy Add. Discharge Instructions: Apply Bactroban to wound 3 times a day. Try applying 2 or 3 pieces of gauze to help cushion under the plastic part of the trach. Call Dr. Gonzalez's office on Wednesday to schedule follow-up. Return for any redness around the wound, fevers, or any other new, concerning, or worsening symptoms. All discharge instructions reviewed with patient and/or family. Voiced understanding. ATTENDING PHYSICIAN NOTE: I was physically present as attending physician in the emergency department during the care of this patient. I have briefly discussed this case with Edward Ramirez NP. I recommended she discuss the situation with the respiratory therapy team. We discussed use of Bactroban ointment. I did not personally interview or examine this patient. I was not otherwise directly involved in the decision making or delivery of care for this patient. (CHICO ESPINOZA MD) EDWARD RAMIREZ APRN October 02, 2022 21:05 CHICO ESPINOZA MD October 04, 2022 13:22
[2022-10-02] MEDS ORDERED: MUPI15CR11 TP (21:21)
[2022-10-02] MEDS ORDERED: RX-MUPIROCIN (BACTROBAN) 2% OINT 22 GM TUBE TOP STA (21:33)
[2022-10-02 21:45] VITALS: BP 144/85
[2022-10-03] MEDS ORDERED: BACITRACIN OINTMENT 28 GM TUBE TOP SCH (09:00)
== END 2022-10-02 21:45 | disposition home or self-care (01) ==
LOC: EDUNIT# 20:15 → ER 20:17
DX: J95.09 Other tracheostomy complication (principal)
CPT/HCPCS: 99282

== ENCOUNTER → 2022-10-08 | Outpatient (CLI) | payer OTHER ==
[~2022-10-08] MED LIST changes: +MUPI15CR11 TP
== END ==
LOC: WOUNDCARE 09:59
PROVIDERS: ATTEND Family Medicine
DX: I96 Gangrene, not elsewhere classified (principal); L89.893 Pressure ulcer of other site, stage 3; L24.A9 Irritant contact dermatitis due friction or contact with other specified body fluids; K02.9 Dental caries, unspecified; C83.11 Mantle cell lymphoma, lymph nodes of head, face, and neck; J95.09 Other tracheostomy complication; R13.19 Other dysphagia
CPT/HCPCS: A6209; A6234; G0463; 99214

== ENCOUNTER 2022-10-21 10:06 | Emergency (ER) | payer MEDICAID ==
[~2022-10-21] VITALS: Ht 172.7 cm; Wt 106.5 kg
--- NOTE | 2022-10-21 10:14 | ED Chest Pain ---
General Stated Complaint: CHEST PAINS | HEADACHE | POST CHEMO History of Present Illness Date Seen by Provider: Oct 21, 2022 Time Seen by Provider: 10:14 Initial Comments 52-year-old male presents with chest discomfort, headache, generalized malaise. Patient has a history of lymphoma. He does have a trach due to the spread. Patient started chemo 3 days ago for the first time ever. He just has some generalized malaise not been feeling well since this started. He denies any fevers chills or cough. Allergies and Home Medications Allergies Coded Allergies: No Known Drug Allergies (Unverified , 09/19/22) Patient Home Medication List Home Medication List Reviewed: Yes Amlodipine Besylate (Amlodipine Besylate) 10 Mg Tablet, 10 MG PO DAILY Prescribed by: ELDA HUANG on 09/25/22 1102 Amoxicillin/Potassium Clav (Amox Tr-K Clv 875-125 mg Tab) 875 Mg-125 Mg Tablet, 875 MG PO BID WITH MEALS Prescribed by: ELDA HUANG on 09/25/22 1102 Fentanyl (Fentanyl Patch 50 MCG) 50 Mcg/Hour Patch.td72, 50 MCG TD Q72H Prescribed by: ELDA HUANG on 09/25/22 1103 Hydrocodone Bit/Acetaminophen (Lortab 7.5-325 Mg/15 Ml Udc) 15 Ml Solution, 15 ML PO Q4H PRN for PAIN-MODERATE (5-7) Prescribed by: ELDA HUANG on 09/25/22 1103 Ondansetron (Ondansetron Odt) 4 Mg Tab.rapdis, 4 MG PO Q6H PRN for NAUSEA/VOMITING Prescribed by: SWATI MOULTON on 10/21/22 1341 Promethazine HCl (Promethazine Suppository) 25 Mg Supp.rect, 25 MG RC Q8H PRN for NAUSEA/VOMITING Prescribed by: SWATI MOULTON on 10/21/22 1341 Review of Systems Review of Systems Constitutional: No chills, No fever Respiratory: See HPI Cardiovascular: See HPI Gastrointestinal: See HPI Genitourinary: No Symptoms Reported Musculoskeletal: no symptoms reported Skin: no symptoms reported Psychiatric/Neurological: No Symptoms Reported Past Bboadbo-Wfjxpl-Thjgwo Hx Past Medical History Ear Surgery, Gallbladder Currently Using CPAP: No Currently Using BIPAP: No Family Medical History Cancer Physical Exam Vital Signs Vital Signs - First Documented Capillary Refill : Height, Weight, BMI Height: '" Weight: lbs. oz. kg; 35.00 BMI Method: General Appearance: No Apparent Distress, Anxious HEENT: Other (Patient with trach) Neck: Supple Respiratory: Lungs Clear, Normal Breath Sounds Cardiovascular: Regular Rate, Rhythm, No Edema Gastrointestinal: Non Tender, Soft Neurologic/Psychiatric: Alert, Oriented x3, Normal Mood/Affect Skin: Normal Color, Cool Progress/Results/Core Measures Results/Orders Lab Results Laboratory Tests Test 10/21/22 12:05 Range/Units White Blood Count 7.3 4.3-11.0 10^3/uL Red Blood Count 4.24 L 4.30-5.52 10^6/uL Hemoglobin 12.1 L 13.3-17.7 g/dL Hematocrit 36 L 40-54 % Mean Corpuscular Volume 84 80-99 fL Mean Corpuscular Hemoglobin 29 25-34 pg Mean Corpuscular Hemoglobin Concent 34 32-36 g/dL Red Cell Distribution Width 13.0 10.0-14.5 % Platelet Count 379 130-400 10^3/uL Mean Platelet Volume 9.5 9.0-12.2 fL Immature Granulocyte % (Auto) 1 % Neutrophils (%) (Auto) 86 H 42-75 % Lymphocytes (%) (Auto) 3 L 12-44 % Monocytes (%) (Auto) 7 0-12 % Eosinophils (%) (Auto) 2 0-10 % Basophils (%) (Auto) 1 0-10 % Neutrophils # (Auto) 6.3 1.8-7.8 10^3/uL Lymphocytes # (Auto) 0.2 L 1.0-4.0 10^3/uL Monocytes # (Auto) 0.5 0.0-1.0 10^3/uL Eosinophils # (Auto) 0.2 0.0-0.3 10^3/uL Basophils # (Auto) 0.0 0.0-0.1 10^3/uL Immature Granulocyte # (Auto) 0.1 0.0-0.1 10^3/uL Neutrophils % (Manual) 89 % Lymphocytes % (Manual) 3 % Monocytes % (Manual) 2 % Eosinophils % (Manual) 2 % Basophils % (Manual) 2 % Metamyelocytes % 2 % Band Neutrophils 0 % Blood Morphology Comment NORMAL Sodium Level 137 135-145 MMOL/L Potassium Level 3.6 3.6-5.0 MMOL/L Chloride Level 106 98-107 MMOL/L Carbon Dioxide Level 19 L 21-32 MMOL/L Anion Gap 12 5-14 MMOL/L Blood Urea Nitrogen 7 7-18 MG/DL Creatinine 0.73 0.60-1.30 MG/DL Estimat Glomerular Filtration Rate 110 BUN/Creatinine Ratio 10 Glucose Level 97 70-105 MG/DL Calcium Level 9.4 8.5-10.1 MG/DL Corrected Calcium 9.5 8.5-10.1 MG/DL Magnesium Level 1.8 1.6-2.4 MG/DL Total Bilirubin 0.6 0.1-1.0 MG/DL Aspartate Amino Transf (AST/SGOT) 15 5-34 U/L Alanine Aminotransferase (ALT/SGPT) 18 0-55 U/L Alkaline Phosphatase 63 40-136 U/L Troponin I < 0.028 <0.028 NG/ML Total Protein 6.6 6.4-8.2 GM/DL Albumin 3.9 3.2-4.5 GM/DL My Orders Orders - MOULTON,SWATI L DO Ekg Tracing (10/21/22 10:12) Cbc With Automated Diff (10/21/22 10:19) Comprehensive Metabolic Panel (10/21/22 10:19) Magnesium (10/21/22 10:19) Troponin I [place] (10/21/22 10:19) Chest 1 View, Ap/Pa Only (10/21/22 10:19) Lactated Ringers (Lr 1000 Ml Iv Solution (10/21/22 10:19) Let Solution (Let Solution) (10/21/22 11:00) Manual Differential (10/21/22 12:05) Ondansetron Oral Dissolve Tab (Zofran (10/21/22 13:10) Promethazine Injection (Phenergan Injec (10/21/22 13:18) Medications Given in ED Current Medications Medications Dose Ordered Sig/Maynor Route Start Time Stop Time Status Last Admin Dose Admin Tetracaine/ Epinephrine/ Lidocaine 3 ml STK-MED ONCE .ROUTE 10/21/22 11:00 10/21/22 11:04 DC 10/21/22 11:06 3 ML Vital Signs/I&O 10/21/22 10/21/2210/21/23 10:06 10:06 14:05 Temp 36.4 Pulse 98 86 Resp 24 14 B/P (MAP) 137/112 (120) 112/98 Pulse Ox 99 97 O2 Delivery Room Air Room Air Room Air Progress Progress Note : Progress Note Patient's diagnostic studies were ordered reviewed and interpreted by me. Patient has no significant acute findings. Patient is very jumpy and not given IV because he had difficulty holding still. Patient will automatically spit out anything it comes p.o. I think he is doing with a lot of anxiety and adjustment since over the last month he has been diagnosed with lymphoma, had all his teeth come out and had a trach placed due to significant lymphoma. He just received his first dose of chemo and his symptoms started after that. There is prior combination of anxiety and chemo side effect causing the symptoms. Patient was given IM Phenergan and his symptoms completely resolved and he felt a lot better. We will try rectal Phenergan and ODT Zofran to help him with his nausea from chemo. I did have a discussion with him and recommend he follow-up with one of the general surgeons and discuss potential port. He was offered 1 initially and was declined but discussed with him potential the need IV fluids and some side effects to the chemo and highly recommended he revisit that with general surgery. Patient is otherwise stable and discharged home. He is at increased risk of morbidity mortality based on social determinants of health. Patient's EKG was ordered and reviewed and shows no acute findings. Patient's x-ray was also ordered and reviewed with no acute concerns with final interpretation per radiology report. Departure Impression Primary Impression: Effect of chemotherapy Disposition: 01 HOME, SELF-CARE Condition: Stable Departure-Patient Inst. Referrals: NO,LOCAL PHYSICIAN (PCP/Family) Primary Care Physician Patient Instructions: When your cancer treatment makes you tired Add. Discharge Instructions: Clear liquid diet, advance as tolerated Scripts Ondansetron (Ondansetron Odt) 4 Mg Tab.rapdis 4 MG PO Q6H PRN for NAUSEA/VOMITING, #20 TAB 0 Refills Prov: VALERIE MOULTONR L DO 10/21/22 Promethazine HCl (Promethazine Suppository) 25 Mg Supp.rect 25 MG RC Q8H PRN for NAUSEA/VOMITING, #10 SUPP.RECT Prov: MOULTONSWATI L DO 10/21/22 SWATI MOULTON DO Oct 21, 2022 10:14
[2022-10-21] MEDS ORDERED: LACTATED RINGERS 1,000 ML IV STA (10:19)
[2022-10-21] MEDS ORDERED: L.E.T. SOLUTION 3 ML SYR ONE (11:00)
--- NOTE | 2022-10-21 11:46 | Diagnostic Imaging Report ---
INDICATION: chest pain. TECHNIQUE: Single view chest 11:19 AM. CORRELATION STUDY: 09/20/2022 FINDINGS: The heart size, mediastinal configuration and pulmonary vascularity are within normal limits. Tracheostomy tube tip projects just below the plane of the clavicular heads. Insertion site indeterminate. The lungs are clear with no consolidating infiltrate. Unchanged mildly elevated right diaphragm. There is no significant effusion or pneumothorax. IMPRESSION: 1. Negative appearing single view chest. Dictated by: Dictated on workstation # [id number]
[2022-10-21 12:11] LABS: BASOPHILS % (AUTO) 1 % (0-10); EOSINOPHILS # (AUTO) 0.2 10^3/uL (0.0-0.3); EOSINOPHILS % (AUTO) 2 % (0-10); HEMATOCRIT 36 % (40-54); HEMOGLOBIN 12.1 g/dL (13.3-17.7); LYMPHOCYTES # (AUTO) 0.2 10^3/uL (1.0-4.0); LYMPHOCYTES % (AUTO) 3 % (12-44); MEAN CORPUSCULAR HEMOGLOBIN 29 pg (25-34); MEAN CORPUSCULAR HGB CONC 34 g/dL (32-36); MEAN CORPUSCULAR VOLUME 84 fL (80-99); MEAN PLATELET VOLUME 9.5 fL (9.0-12.2); MONOCYTES # (AUTO) 0.5 10^3/uL (0.0-1.0); MONOCYTES % (AUTO) 7 % (0-12); NEUTROPHILS # (AUTO) 6.3 10^3/uL (1.8-7.8); NEUTROPHILS % (AUTO) 86 % (42-75); PLATELET COUNT 379 10^3/uL (130-400); WHITE BLOOD COUNT 7.3 10^3/uL (4.3-11.0)
[2022-10-21 12:19] LABS: ALBUMIN 3.9 GM/DL (3.2-4.5); CHLORIDE 106 MMOL/L (98-107); POTASSIUM 3.6 MMOL/L (3.6-5.0); SODIUM 137 MMOL/L (135-145)
[2022-10-21 12:20] LABS: CALCIUM 9.4 MG/DL (8.5-10.1)
[2022-10-21 12:22] LABS: GLUCOSE 97 MG/DL (70-105); TOTAL PROTEIN 6.6 GM/DL (6.4-8.2)
[2022-10-21 12:23] LABS: BILIRUBIN,TOTAL 0.6 MG/DL (0.1-1.0); CARBON DIOXIDE 19 MMOL/L (21-32)
[2022-10-21 12:25] LABS: ALKALINE PHOSPHATASE 63 U/L (40-136); CREATININE SERUM 0.73 MG/DL (0.60-1.30); GFR ESTIMATED 110
[2022-10-21 12:26] LABS: BUN/CREATININE RATIO 10
[2022-10-21 12:28] LABS: ALANINE AMINOTRANSFERASE 18 U/L (0-55); MAGNESIUM 1.8 MG/DL (1.6-2.4)
[2022-10-21 12:44] LABS: BAND NEUTROPHILS 0 %; BASOPHILS % (MANUAL) 2 %; EOSINOPHILS % (MANUAL) 2 %; LYMPHOCYTES % (MANUAL) 3 %; METAMYELOCYTES % 2 %; MONOCYTES % (MANUAL) 2 %; NEUTROPHILS % (MANUAL) 89 %
[2022-10-21 12:45] LABS: RBC MORPH NORMAL
[2022-10-21] MEDS ORDERED: ONDANSETRON 4 MG (ZOFRAN) ORAL DISSOLVE TAB SL STA (13:10)
[2022-10-21] MEDS ORDERED: PROMETHAZINE INJ 25 MG/ML (PHENERGAN) AMP IM STA (13:18)
[2022-10-21] MEDS ORDERED: PROM25SU44 RC (13:41)
[2022-10-21] MEDS ORDERED: ONDA4TAB11 PO (13:41)
[2022-10-21 14:05] VITALS: BP 112/98
== END 2022-10-21 14:08 | disposition home or self-care (01) ==
LOC: EDUNIT# 10:06 → ER 10:08
DX: R07.89 Other chest pain (principal); R51.9 Headache, unspecified; R53.81 Other malaise; T45.1X5A Adverse effect of antineoplastic and immunosuppressive drugs, initial encounter
CPT/HCPCS: 36415; 71045; 80053; 83735; 84484; 85007; 85027; 93005

== ENCOUNTER 2022-11-04 10:08 | Outpatient (RCR) | payer MEDICAID, OTHER ==
[~2022-11-04 10:08] MED LIST changes: +ONDA4TAB11 PO; +PROM25SU44 RC
[2022-11-04 10:20] LABS: BASOPHILS # (AUTO) 0.1 10^3/uL (0.0-0.1); BASOPHILS % (AUTO) 2 % (0-10); EOSINOPHILS # (AUTO) 0.1 10^3/uL (0.0-0.3); EOSINOPHILS % (AUTO) 2 % (0-10); HEMATOCRIT 38 % (40-54); HEMOGLOBIN 12.7 g/dL (13.3-17.7); LYMPHOCYTES # (AUTO) 0.4 10^3/uL (1.0-4.0); LYMPHOCYTES % (AUTO) 9 % (12-44); MEAN CORPUSCULAR HEMOGLOBIN 29 pg (25-34); MEAN CORPUSCULAR HGB CONC 33 g/dL (32-36); MEAN CORPUSCULAR VOLUME 87 fL (80-99); MONOCYTES # (AUTO) 0.5 10^3/uL (0.0-1.0); MONOCYTES % (AUTO) 14 % (0-12); NEUTROPHILS # (AUTO) 2.9 10^3/uL (1.8-7.8); NEUTROPHILS % (AUTO) 73 % (42-75); PLATELET COUNT 351 10^3/uL (130-400)
[2022-11-04 10:40] LABS: ALBUMIN 3.9 GM/DL (3.2-4.5); BILIRUBIN,TOTAL 0.4 MG/DL (0.1-1.0); CALCIUM 9.4 MG/DL (8.5-10.1); CREATININE SERUM 0.75 MG/DL (0.60-1.30); POTASSIUM 3.8 MMOL/L (3.6-5.0); TOTAL PROTEIN 6.6 GM/DL (6.4-8.2)
== END 2022-11-06 | disposition home or self-care (01) ==
LOC: ONC 10:08
PROVIDERS: ATTEND Internal Medicine Hematology & Oncology
DX: C83.10 Mantle cell lymphoma, unspecified site (principal)
CPT/HCPCS: 80053; 85025

== ENCOUNTER 2022-12-02 09:28 | Outpatient (RCR) | payer MEDICAID ==
[2022-11-11 11:21] LABS: BASOPHILS # (AUTO) 0.1 10^3/uL (0.0-0.1); BASOPHILS % (AUTO) 1 % (0-10); EOSINOPHILS # (AUTO) 0.1 10^3/uL (0.0-0.3); EOSINOPHILS % (AUTO) 2 % (0-10); HEMATOCRIT 42 % (40-54); HEMOGLOBIN 13.9 g/dL (13.3-17.7); LYMPHOCYTES # (AUTO) 0.4 10^3/uL (1.0-4.0); LYMPHOCYTES % (AUTO) 7 % (12-44); MEAN CORPUSCULAR HEMOGLOBIN 29 pg (25-34); MEAN CORPUSCULAR HGB CONC 33 g/dL (32-36); MEAN CORPUSCULAR VOLUME 87 fL (80-99); MEAN PLATELET VOLUME 10.3 fL (9.0-12.2); MONOCYTES # (AUTO) 0.6 10^3/uL (0.0-1.0); MONOCYTES % (AUTO) 11 % (0-12); NEUTROPHILS # (AUTO) 4.1 10^3/uL (1.8-7.8); NEUTROPHILS % (AUTO) 78 % (42-75); PLATELET COUNT 263 10^3/uL (130-400); WHITE BLOOD COUNT 5.2 10^3/uL (4.3-11.0)
[2022-11-11 11:38] LABS: ALBUMIN 4.1 GM/DL (3.2-4.5); BILIRUBIN,TOTAL 0.5 MG/DL (0.1-1.0); CALCIUM 9.4 MG/DL (8.5-10.1); CREATININE SERUM 0.74 MG/DL (0.60-1.30); POTASSIUM 3.7 MMOL/L (3.6-5.0); TOTAL PROTEIN 6.9 GM/DL (6.4-8.2); URIC ACID 6.9 MG/DL (2.6-7.2)
[2022-11-12] MEDS: NS IV 1000 ML (CANCER CTR) IV SCH (12:57)
[2022-11-12 13:11] VITALS: BP 118/82
[2022-11-12] MEDS: diphenhydrAMINE INJ 50 MG/ML VIAL IV PRN (13:26)
[2022-11-12] MEDS: [UNRECOGNIZED DRUG - OTHER] IV SCH (13:28)
[2022-11-12] MEDS: DEXAMETHASONE SODIUM PHOSPHATE IV SCH (13:28)
[2022-11-12] MEDS: ONDANSETRON IV SCH (13:28)
[2022-11-12] MEDS: ACETAMINOPHEN 325 MG/10.15 ML ORAL SOLN UDC PO PRN (13:32)
[2022-11-12] MEDS: BENDAMUSTINE HCL IV SCH (15:27)
[2022-11-12] MEDS: NS IV SCH (15:27)
[2022-11-13] MEDS: ACETAMINOPHEN 325 MG/10.15 ML ORAL SOLN UDC PO PRN (09:26)
[2022-11-13] MEDS: diphenhydrAMINE INJ 50 MG/ML VIAL IV PRN (09:26)
[2022-11-13] MEDS: NS IV 1000 ML (CANCER CTR) IV SCH (09:27)
[2022-11-13] MEDS: DEXAMETHASONE SODIUM PHOSPHATE IV SCH (09:27)
[2022-11-13] MEDS: ONDANSETRON IV SCH (09:27)
[2022-11-13] MEDS: [UNRECOGNIZED DRUG - OTHER] IV SCH (09:27)
[2022-11-13 09:35] VITALS: BP 121/81
[2022-11-13] MEDS: BENDAMUSTINE HCL IV SCH (09:59)
[2022-11-13] MEDS: NS IV SCH (09:59)
[2022-11-18 09:39] LABS: BASOPHILS % (AUTO) 1 % (0-10); EOSINOPHILS # (AUTO) 0.2 10^3/uL (0.0-0.3); EOSINOPHILS % (AUTO) 3 % (0-10); HEMATOCRIT 42 % (40-54); HEMOGLOBIN 14.1 g/dL (13.3-17.7); LYMPHOCYTES # (AUTO) 0.1 10^3/uL (1.0-4.0); LYMPHOCYTES % (AUTO) 2 % (12-44); MEAN CORPUSCULAR HEMOGLOBIN 29 pg (25-34); MEAN CORPUSCULAR HGB CONC 34 g/dL (32-36); MEAN CORPUSCULAR VOLUME 85 fL (80-99); MEAN PLATELET VOLUME 10.1 fL (9.0-12.2); MONOCYTES # (AUTO) 0.4 10^3/uL (0.0-1.0); MONOCYTES % (AUTO) 6 % (0-12); NEUTROPHILS # (AUTO) 5.4 10^3/uL (1.8-7.8); NEUTROPHILS % (AUTO) 87 % (42-75); PLATELET COUNT 222 10^3/uL (130-400); WHITE BLOOD COUNT 6.1 10^3/uL (4.3-11.0)
[2022-11-18 09:58] LABS: ALBUMIN 3.9 GM/DL (3.2-4.5); BILIRUBIN,TOTAL 0.8 MG/DL (0.1-1.0); CALCIUM 9.4 MG/DL (8.5-10.1); CREATININE SERUM 0.8 MG/DL (0.60-1.30); POTASSIUM 3.7 MMOL/L (3.6-5.0); TOTAL PROTEIN 6.5 GM/DL (6.4-8.2); URIC ACID 6.9 MG/DL (2.6-7.2)
[2022-11-25 10:09] LABS: BASOPHILS % (AUTO) 1 % (0-10); EOSINOPHILS # (AUTO) 0.1 10^3/uL (0.0-0.3); EOSINOPHILS % (AUTO) 2 % (0-10); HEMATOCRIT 40 % (40-54); HEMOGLOBIN 13.3 g/dL (13.3-17.7); LYMPHOCYTES # (AUTO) 0.1 10^3/uL (1.0-4.0); LYMPHOCYTES % (AUTO) 3 % (12-44); MEAN CORPUSCULAR HEMOGLOBIN 29 pg (25-34); MEAN CORPUSCULAR HGB CONC 34 g/dL (32-36); MEAN CORPUSCULAR VOLUME 86 fL (80-99); MEAN PLATELET VOLUME 10.2 fL (9.0-12.2); MONOCYTES # (AUTO) 0.5 10^3/uL (0.0-1.0); MONOCYTES % (AUTO) 12 % (0-12); NEUTROPHILS # (AUTO) 3.9 10^3/uL (1.8-7.8); NEUTROPHILS % (AUTO) 82 % (42-75); PLATELET COUNT 266 10^3/uL (130-400); WHITE BLOOD COUNT 4.7 10^3/uL (4.3-11.0)
[2022-11-25 10:32] LABS: ALBUMIN 3.9 GM/DL (3.2-4.5); BILIRUBIN,TOTAL 0.4 MG/DL (0.1-1.0); CALCIUM 9.2 MG/DL (8.5-10.1); CREATININE SERUM 0.74 MG/DL (0.60-1.30); POTASSIUM 3.7 MMOL/L (3.6-5.0); TOTAL PROTEIN 6.6 GM/DL (6.4-8.2); URIC ACID 6.3 MG/DL (2.6-7.2)
[~2022-12-02] VITALS: Ht 172.7 cm; Wt 104.0 kg
[~2022-12-02 09:28] MED LIST changes: +ACETAMINOPHEN 325 MG TABLET PO PRN; +HEParin (CENTRAL IV FLUSH) 500 UNIT/5 ML SYR IV PRN; +NS IV SCH; +RITUXIMAB ABBS IV SCH; +diphenhydrAMINE 25 MG TABLET PO SCH; +diphenhydrAMINE INJ 50 MG/ML VIAL ONE
[2022-12-02 09:47] LABS: BASOPHILS % (AUTO) 2 % (0-10); EOSINOPHILS # (AUTO) 0.1 10^3/uL (0.0-0.3); EOSINOPHILS % (AUTO) 3 % (0-10); HEMATOCRIT 40 % (40-54); HEMOGLOBIN 13.4 g/dL (13.3-17.7); LYMPHOCYTES # (AUTO) 0.2 10^3/uL (1.0-4.0); LYMPHOCYTES % (AUTO) 7 % (12-44); MEAN CORPUSCULAR HEMOGLOBIN 29 pg (25-34); MEAN CORPUSCULAR HGB CONC 34 g/dL (32-36); MEAN CORPUSCULAR VOLUME 85 fL (80-99); MEAN PLATELET VOLUME 9.7 fL (9.0-12.2); MONOCYTES # (AUTO) 0.5 10^3/uL (0.0-1.0); MONOCYTES % (AUTO) 18 % (0-12); NEUTROPHILS # (AUTO) 1.9 10^3/uL (1.8-7.8); NEUTROPHILS % (AUTO) 71 % (42-75); PLATELET COUNT 280 10^3/uL (130-400); WHITE BLOOD COUNT 2.7 10^3/uL (4.3-11.0)
[2022-12-02 10:04] LABS: BILIRUBIN,TOTAL 0.5 MG/DL (0.1-1.0); CALCIUM 9.1 MG/DL (8.5-10.1); CREATININE SERUM 0.84 MG/DL (0.60-1.30); POTASSIUM 3.7 MMOL/L (3.6-5.0); TOTAL PROTEIN 6.6 GM/DL (6.4-8.2); URIC ACID 6.7 MG/DL (2.6-7.2)
== END 2022-12-07 | disposition home or self-care (01) ==
LOC: ONC 09:28
PROVIDERS: ATTEND Internal Medicine Hematology & Oncology
DX: Z51.11 Encounter for antineoplastic chemotherapy (principal); C83.18 Mantle cell lymphoma, lymph nodes of multiple sites
CPT/HCPCS: 36415; 80053; 83615; 84550; 85025; 96375; 96413; 96417

== ENCOUNTER 2023-01-06 07:50 | Outpatient (RCR) | payer MEDICAID ==
[2022-12-08 11:13] LABS: BASOPHILS # (AUTO) 0.1 10^3/uL (0.0-0.1); BASOPHILS % (AUTO) 2 % (0-10); EOSINOPHILS # (AUTO) 0.1 10^3/uL (0.0-0.3); EOSINOPHILS % (AUTO) 2 % (0-10); HEMATOCRIT 44 % (40-54); HEMOGLOBIN 14.4 g/dL (13.3-17.7); LYMPHOCYTES # (AUTO) 0.3 10^3/uL (1.0-4.0); LYMPHOCYTES % (AUTO) 8 % (12-44); MEAN CORPUSCULAR HEMOGLOBIN 29 pg (25-34); MEAN CORPUSCULAR HGB CONC 33 g/dL (32-36); MEAN CORPUSCULAR VOLUME 87 fL (80-99); MONOCYTES # (AUTO) 0.6 10^3/uL (0.0-1.0); MONOCYTES % (AUTO) 16 % (0-12); NEUTROPHILS # (AUTO) 2.6 10^3/uL (1.8-7.8); NEUTROPHILS % (AUTO) 72 % (42-75); PLATELET COUNT 290 10^3/uL (130-400); WHITE BLOOD COUNT 3.7 10^3/uL (4.3-11.0)
[2022-12-08 11:25] VITALS: BP 145/90
[2022-12-08 11:37] LABS: ALBUMIN 4.1 GM/DL (3.2-4.5); BILIRUBIN,TOTAL 0.4 MG/DL (0.1-1.0); CALCIUM 9.2 MG/DL (8.5-10.1); CREATININE SERUM 0.79 MG/DL (0.60-1.30); POTASSIUM 4.3 MMOL/L (3.6-5.0); URIC ACID 6.1 MG/DL (2.6-7.2)
[2022-12-08] MEDS: DEXAMETHASONE SODIUM PHOSPHATE IV SCH (11:41)
[2022-12-08] MEDS: ONDANSETRON IV SCH (11:41)
[2022-12-08] MEDS: NS IV 1000 ML (CANCER CTR) IV SCH (11:41)
[2022-12-08] MEDS: [UNRECOGNIZED DRUG - OTHER] IV SCH (11:41)
[2022-12-08] MEDS: diphenhydrAMINE INJ 50 MG/ML VIAL IV PRN (11:42)
[2022-12-08] MEDS: ACETAMINOPHEN 325 MG/10.15 ML ORAL SOLN UDC PO PRN (11:42)
[2022-12-08] MEDS: NS IV SCH ×2 (12:03→13:37)
[2022-12-08] MEDS: RITUXIMAB ABBS IV SCH (12:03)
[2022-12-08] MEDS: BENDAMUSTINE HCL IV SCH (13:37)
[2022-12-09] MEDS: diphenhydrAMINE INJ 50 MG/ML VIAL IV PRN (09:54)
[2022-12-09] MEDS: ACETAMINOPHEN 325 MG/10.15 ML ORAL SOLN UDC PO PRN (09:55)
[2022-12-09] MEDS: NS IV 1000 ML (CANCER CTR) IV SCH (09:55)
[2022-12-09] MEDS: DEXAMETHASONE SODIUM PHOSPHATE IV SCH (09:56)
[2022-12-09] MEDS: [UNRECOGNIZED DRUG - OTHER] IV SCH (09:56)
[2022-12-09] MEDS: ONDANSETRON IV SCH (09:56)
[2022-12-09 10:14] VITALS: BP 132/85
[2022-12-09] MEDS: NS IV SCH (10:34)
[2022-12-09] MEDS: BENDAMUSTINE HCL IV SCH (10:34)
[2022-12-15 10:42] LABS: BASOPHILS # (AUTO) 0.1 10^3/uL (0.0-0.1); BASOPHILS % (AUTO) 1 % (0-10); EOSINOPHILS # (AUTO) 0.2 10^3/uL (0.0-0.3); EOSINOPHILS % (AUTO) 3 % (0-10); HEMATOCRIT 44 % (40-54); HEMOGLOBIN 14.2 g/dL (13.3-17.7); LYMPHOCYTES # (AUTO) 0.1 10^3/uL (1.0-4.0); LYMPHOCYTES % (AUTO) 2 % (12-44); MEAN CORPUSCULAR HEMOGLOBIN 28 pg (25-34); MEAN CORPUSCULAR HGB CONC 33 g/dL (32-36); MEAN CORPUSCULAR VOLUME 86 fL (80-99); MEAN PLATELET VOLUME 9.8 fL (9.0-12.2); MONOCYTES # (AUTO) 0.5 10^3/uL (0.0-1.0); MONOCYTES % (AUTO) 10 % (0-12); NEUTROPHILS # (AUTO) 4.5 10^3/uL (1.8-7.8); NEUTROPHILS % (AUTO) 84 % (42-75); PLATELET COUNT 256 10^3/uL (130-400); WHITE BLOOD COUNT 5.4 10^3/uL (4.3-11.0)
[2022-12-15 10:55] LABS: BILIRUBIN,TOTAL 0.5 MG/DL (0.1-1.0); CREATININE SERUM 0.76 MG/DL (0.60-1.30); POTASSIUM 3.8 MMOL/L (3.6-5.0); TOTAL PROTEIN 6.5 GM/DL (6.4-8.2); URIC ACID 6.3 MG/DL (2.6-7.2)
[2022-12-22 11:04] LABS: BASOPHILS # (AUTO) 0.1 10^3/uL (0.0-0.1); BASOPHILS % (AUTO) 1 % (0-10); EOSINOPHILS # (AUTO) 0.2 10^3/uL (0.0-0.3); EOSINOPHILS % (AUTO) 3 % (0-10); HEMATOCRIT 43 % (40-54); HEMOGLOBIN 14.2 g/dL (13.3-17.7); LYMPHOCYTES # (AUTO) 0.2 10^3/uL (1.0-4.0); LYMPHOCYTES % (AUTO) 3 % (12-44); MEAN CORPUSCULAR HEMOGLOBIN 28 pg (25-34); MEAN CORPUSCULAR HGB CONC 33 g/dL (32-36); MEAN CORPUSCULAR VOLUME 87 fL (80-99); MEAN PLATELET VOLUME 10.1 fL (9.0-12.2); MONOCYTES # (AUTO) 0.7 10^3/uL (0.0-1.0); MONOCYTES % (AUTO) 12 % (0-12); NEUTROPHILS # (AUTO) 4.7 10^3/uL (1.8-7.8); NEUTROPHILS % (AUTO) 82 % (42-75); PLATELET COUNT 255 10^3/uL (130-400); WHITE BLOOD COUNT 5.7 10^3/uL (4.3-11.0)
[2022-12-22 11:24] LABS: BILIRUBIN,TOTAL 0.4 MG/DL (0.1-1.0); CALCIUM 9.3 MG/DL (8.5-10.1); CREATININE SERUM 0.88 MG/DL (0.60-1.30); POTASSIUM 3.4 MMOL/L (3.6-5.0); TOTAL PROTEIN 6.5 GM/DL (6.4-8.2); URIC ACID 6.6 MG/DL (2.6-7.2)
[2022-12-29 10:40] LABS: BASOPHILS # (AUTO) 0.1 10^3/uL (0.0-0.1); BASOPHILS % (AUTO) 1 % (0-10); EOSINOPHILS # (AUTO) 0.2 10^3/uL (0.0-0.3); EOSINOPHILS % (AUTO) 5 % (0-10); HEMATOCRIT 45 % (40-54); HEMOGLOBIN 14.5 g/dL (13.3-17.7); LYMPHOCYTES # (AUTO) 0.2 10^3/uL (1.0-4.0); LYMPHOCYTES % (AUTO) 5 % (12-44); MEAN CORPUSCULAR HEMOGLOBIN 28 pg (25-34); MEAN CORPUSCULAR HGB CONC 32 g/dL (32-36); MEAN CORPUSCULAR VOLUME 87 fL (80-99); MEAN PLATELET VOLUME 9.9 fL (9.0-12.2); MONOCYTES # (AUTO) 0.6 10^3/uL (0.0-1.0); MONOCYTES % (AUTO) 17 % (0-12); NEUTROPHILS # (AUTO) 2.7 10^3/uL (1.8-7.8); NEUTROPHILS % (AUTO) 71 % (42-75); PLATELET COUNT 242 10^3/uL (130-400); WHITE BLOOD COUNT 3.8 10^3/uL (4.3-11.0)
[2022-12-29 11:03] LABS: ALBUMIN 4.1 GM/DL (3.2-4.5); BILIRUBIN,TOTAL 0.4 MG/DL (0.1-1.0); CALCIUM 9.1 MG/DL (8.5-10.1); CREATININE SERUM 0.85 MG/DL (0.60-1.30); POTASSIUM 4.1 MMOL/L (3.6-5.0); TOTAL PROTEIN 6.7 GM/DL (6.4-8.2); URIC ACID 6.5 MG/DL (2.6-7.2)
[2023-01-05 10:51] LABS: BASOPHILS # (AUTO) 0.1 10^3/uL (0.0-0.1); BASOPHILS % (AUTO) 2 % (0-10); EOSINOPHILS # (AUTO) 0.3 10^3/uL (0.0-0.3); EOSINOPHILS % (AUTO) 6 % (0-10); HEMATOCRIT 44 % (40-54); HEMOGLOBIN 14.7 g/dL (13.3-17.7); LYMPHOCYTES # (AUTO) 0.2 10^3/uL (1.0-4.0); LYMPHOCYTES % (AUTO) 4 % (12-44); MEAN CORPUSCULAR HEMOGLOBIN 29 pg (25-34); MEAN CORPUSCULAR HGB CONC 33 g/dL (32-36); MEAN CORPUSCULAR VOLUME 86 fL (80-99); MEAN PLATELET VOLUME 9.8 fL (9.0-12.2); MONOCYTES # (AUTO) 0.7 10^3/uL (0.0-1.0); MONOCYTES % (AUTO) 15 % (0-12); NEUTROPHILS # (AUTO) 3.4 10^3/uL (1.8-7.8); NEUTROPHILS % (AUTO) 74 % (42-75); PLATELET COUNT 236 10^3/uL (130-400); WHITE BLOOD COUNT 4.6 10^3/uL (4.3-11.0)
[2023-01-05 11:11] LABS: BILIRUBIN,TOTAL 0.3 MG/DL (0.1-1.0); CREATININE SERUM 0.85 MG/DL (0.60-1.30); POTASSIUM 3.9 MMOL/L (3.6-5.0); TOTAL PROTEIN 6.6 GM/DL (6.4-8.2); URIC ACID 6.1 MG/DL (2.6-7.2)
[2023-01-05] MEDS: NS IV SCH ×2 (11:40→13:15)
[2023-01-05] MEDS: RITUXIMAB ABBS IV SCH (11:40)
[2023-01-05 12:58] VITALS: BP 152/83
[2023-01-05] MEDS: BENDAMUSTINE HCL IV SCH (13:15)
[~2023-01-06] VITALS: Ht 172.7 cm; Wt 107.0 kg
[~2023-01-06 07:50] MED LIST changes: -ACETAMINOPHEN 325 MG TABLET PO PRN; -NS IV SCH; -RITUXIMAB ABBS IV SCH; -diphenhydrAMINE 25 MG TABLET PO SCH; -diphenhydrAMINE INJ 50 MG/ML VIAL ONE
[2023-01-06 10:10] VITALS: BP 147/95
[2023-01-06] MEDS: NS IV 1000 ML (CANCER CTR) IV SCH (10:17)
[2023-01-06] MEDS: DEXAMETHASONE SODIUM PHOSPHATE IV SCH (10:18)
[2023-01-06] MEDS: diphenhydrAMINE INJ 50 MG/ML VIAL IV PRN (10:18)
[2023-01-06] MEDS: [UNRECOGNIZED DRUG - OTHER] IV SCH (10:18)
[2023-01-06] MEDS: ONDANSETRON IV SCH (10:18)
[2023-01-06] MEDS: NS IV SCH (10:47)
[2023-01-06] MEDS: BENDAMUSTINE HCL IV SCH (10:47)
== END 2023-01-07 | disposition home or self-care (01) ==
LOC: ONC 07:50
PROVIDERS: ATTEND Internal Medicine Hematology & Oncology
DX: Z51.11 Encounter for antineoplastic chemotherapy (principal); C83.18 Mantle cell lymphoma, lymph nodes of multiple sites
CPT/HCPCS: 36415; 80053; 84550; 85025; 96375; 96413; 96415; 96417; 99214